=== PATIENT | female | born 2005 | race Hispanic/Latino ===

== ENCOUNTER 2024-06-20 20:10 | Emergency (ER) | payer BC ==
--- OUTSIDE RECORDS SUMMARY | 2024-06-20 20:17 | XMS REPORT | Continuity of Care Document ---
Author Name Unknown Address [address] [facility] [address] [place] [address] Organization [facility] [place] Address [address] [facility] [address] [place] [address] Care Team Providers Care Utility Inspector Name Role Phone SIENNA ROMERO Primary Care Physician Unavailab OCTAVIANO Carvalho Attending Clinician Unavailable OCTAVIANO VELASQUEZ Attending Clinician Unavailable Tal[facility] Attending Clinician Un available Unknown, Attending Attending Clinician Unavailab SUE Jaquez Attending Clinician Unavailable Doctor Unassigned, Inger Attending Clinician U Octaviano Ledbetter MD Attending Clinician [phone], [facility] Attending Clinician Unavailable DARA DE LOS SANTOS Attending Clinician Unavailable Dara De Los Santos PA-C Attending Clinician [phone] Dara De Los Santos PA-C Attending Clinician [phone] Unknown, Attending Attending Clinician Unavailab chelsea Mina MA, May Attending Clinician Unavailab LEONEL Nixon Attending Clinician Unavailable Leonel Dorado Attending Clinician [phone] Doctor Unassigned, Inger Attending Clinician U Talib Bhagat Attending Clinician Unavailable Sienna Boyce Attending Clinician [phone] SIENNA ROMERO Attending Clinician Unavailable Talib Padilla [facility] Fam Attending Clinician Unav ailable ASIYA HONG Attending Clinician Unavailable Asiya José Attending Clinician [phone], [facility] Attending Clinician Unavailable Elizabeth Hoffman MD Attending Clinician [phone] ELIZABETH HOFFMAN Attending Clinician Unavailable Provider, [facility] Attending Clinician Un available Bel SHEN, Buddy Mc Attending Clinician Lab, [facility] Pob I Attending Clinician Unavailab GINNY Evangelista Attending Clinician Unavaila ble Payers Payer Name Policy Type Policy Number Effective Date Expirati on Date Source [facility] [id number] 2015 00:00:00 Problems Condition Name Condition Details Condition Category Status Onset Date Resolution Date Last Treatment Date Treating Clinician Comments Source Obesity (BMI 30-39.9) Obesity (BMI 30-39.9) Disease Active 05-17 00:00: 00 [facility] Routine general medical examinatio n at a health care facility Routine general medical examinatio n at a health care facility Disease Active 10-30 00:00: 00 [facility] Cardiac murmur Cardiac murmur Disease Active 10-30 00:00: 00 [facility] Need for HPV vaccinatio n Need for HPV vaccinatio n Disease Resolve d 10-30 00:00: 00 2023-12-30 00:00:00 2023-12-30 15:12:06 [facility] Allergies, Adverse Reactions, Alerts Allergy Name Allergy Type Status Severity Reaction(s) Onset Date Inactive Date Treating Clinician Comments Source NO KNOWN ALLERGIE S Drug Class Active [facility] Social History Social Habit Start Date Stop Date Quantity Comments Source [facility] History of Social function 2024-04-22 00:00:00 2024-04-22 00:00:00 [facility] Alcoholic beverage intake 2024-04-22 00:00:00 2024-04-22 00:00:00 Current non-drinker of alcohol (finding) [facility] Exposure to SARS-CoV-2 (event) 2022-06-15 00:00:00 2022-06-25 12:08:00 Not sure [facility] Alcohol intake 2022-06-25 00:00:00 2022-06-25 00:00:00 Current non-drinker of alcohol (finding) [facility] Tobacco use and exposure 2021-11-27 00:00:00 2021-11-27 00:00:00 Smokeless tobacco non-user [facility] Sex assigned at 2005 00:00:00 2005 00:00:00 [facility] Smoking Status Start Date Stop Date Source Never smoked tobacco [facility] Medications Ordered Medication Name Filled Medication Name Start Date Stop Date Current Medication? Ordering Clinician Indication Dosage Frequency Signature (SIG) Comments Components Source norelgestro min-ethinyl estradiol 150-35 mcg/24 hr patch 2023-02 2-05 00:00: 00 Yes [id number] 1{patch } Apply 1 Patch to skin weekly. [facility] ondansetron 4 mg disintegrat ing tablet 2023-02 00:00: 00 12-29 00:00 :00 No [id number] 4mg Take 1 tablet by mouth every 8 (eight) hours as needed for Nausea and Vomiting (N/V). [facility] amoxicillin 500 mg capsule 6-04 00:00: 00 08-02 04:59 :00 No [id number] 500mg Take 1 capsule by mouth in the morning and 1 capsule in the evening. Do all this for 10 days. [facility] methylPREDN ISolone (MEDROL, ROSEANNE,) 4 mg tablets 5-08 00:00: 00 12-29 00:00 :00 No [id number] follow package directions [facility] norgestimat e-ethinyl estradioL 0.25-35 mg-mcg per tablet 3-30 00:00: 00 12-29 00:00 :00 No [id number] 1{tbl} Take 1 tablet by mouth in the morning. [facility] norgestimat e-ethinyl estradioL 0.25-35 mg-mcg per tablet -12 00:00: 00 05-17 00:00 :00 No [id number] 1{tbl} Take 1 tablet by mouth in the morning. [facility] azelastine 137 mcg (0.1 %) nasal spray 02-22 00:00: 00 12-29 00:00 :00 No [id number] 1{spray } Use 1 [place]mar in each nostril in the morning and 1 [place]mar in the evening. Use in each nostril as directed [facility] benzonatate (TESSALON PERLES) 100 mg capsule 02-22 00:00: 00 12-29 00:00 :00 No [id number] 100mg Take 1 capsule by mouth every 8 (eight) hours as needed for Cough. [facility] spinosad (NATROBA) 0.9 % suspension 2018-02 00:00: 00 02-22 00:00 :00 No [id number] Apply to dry hair/scalp , rinse with warm water after 10 minutes. May repeat in 7 days. [facility] Immunizations Ordered Immunization Name Filled Immunization Name Date Status Comments Source Meningococcal B, OMV 2022-06-12 00:00:00 Completed [facility] Meningococcal B, OMV 2022-06-12 00:00:00 Completed [facility] Meningococcal B, OMV 2022-06-12 00:00:00 Completed [facility] Meningococcal B, OMV 2022-06-12 00:00:00 Completed [facility] Meningococcal B, OMV 2022-06-12 00:00:00 Completed Meningococcal B, OMV 2022-06-12 00:00:00 Completed [facility] SARS-COV-2 COVID-19 MODERNA 12+ YRS VACCINE 2022-04-05 00:00:00 Completed [facility] SARS-COV-2 COVID-19 MODERNA 12+ YRS VACCINE 2022-04-05 00:00:00 Completed [facility] SARS-COV-2 COVID-19 MODERNA 12+ YRS VACCINE 2022-04-05 00:00:00 Completed [facility] SARS-COV-2 COVID-19 MODERNA 12+ YRS VACCINE 2022-04-05 00:00:00 Completed [facility] SARS-COV-2 COVID-19 MODERNA 12+ YRS VACCINE 2022-04-05 00:00:00 Completed [facility] SARS-COV-2 COVID-19 MODERNA 12+ YRS VACCINE 2022-04-05 00:00:00 Completed [facility] SARS-COV-2 COVID-19 MODERNA 12+ YRS VACCINE 2022-04-05 00:00:00 Completed [facility] SARS-COV-2 COVID-19 MODERNA 12+ YRS VACCINE 2022-04-05 00:00:00 Completed [facility] SARS-COV-2 COVID-19 MODERNA 12+ YRS VACCINE 2022-04-05 00:00:00 Completed [facility] SARS-COV-2 COVID-19 MODERNA 12+ YRS VACCINE 2022-04-05 00:00:00 Completed [facility] SARS-COV-2 COVID-19 MODERNA 12+ YRS VACCINE 2022-01-17 00:00:00 Completed [facility] SARS-COV-2 COVID-19 MODERNA 12+ YRS VACCINE 2022-01-17 00:00:00 Completed [facility] SARS-COV-2 COVID-19 MODERNA 12+ YRS VACCINE 2022-01-17 00:00:00 Completed [facility] SARS-COV-2 COVID-19 MODERNA 12+ YRS VACCINE 2022-01-17 00:00:00 Completed [facility] SARS-COV-2 COVID-19 MODERNA 12+ YRS VACCINE 2022-01-17 00:00:00 Completed [facility] SARS-COV-2 COVID-19 MODERNA 12+ YRS VACCINE 2022-01-17 00:00:00 Completed [facility] SARS-COV-2 COVID-19 MODERNA 12+ YRS VACCINE 2022-01-17 00:00:00 Completed [facility] SARS-COV-2 COVID-19 MODERNA 12+ YRS VACCINE 2022-01-17 00:00:00 Completed [facility] SARS-COV-2 COVID-19 MODERNA 12+ YRS VACCINE 2022-01-17 00:00:00 Completed [facility] SARS-COV-2 COVID-19 MODERNA 12+ YRS VACCINE 2022-01-17 00:00:00 Completed [facility] SARS-COV-2 COVID-19 MODERNA 12+ YRS VACCINE 2022-01-17 00:00:00 Completed [facility] SARS-COV-2 COVID-19 MODERNA 12+ YRS VACCINE 2022-01-17 00:00:00 Completed [facility] SARS-COV-2 COVID-19 MODERNA 12+ YRS VACCINE 2022-01-17 00:00:00 Completed [facility] SARS-COV-2 COVID-19 MODERNA 12+ YRS VACCINE 2022-01-17 00:00:00 Completed [facility] SARS-COV-2 COVID-19 MODERNA 12+ YRS VACCINE 2022-01-17 00:00:00 Completed [facility] SARS-COV-2 COVID-19 MODERNA 12+ YRS VACCINE 2022-01-17 00:00:00 Completed [facility] SARS-COV-2 COVID-19 MODERNA 12+ YRS VACCINE 2022-01-17 00:00:00 Completed [facility] SARS-COV-2 COVID-19 MODERNA 12+ YRS VACCINE 2022-01-17 00:00:00 Completed [facility] SARS-COV-2 COVID-19 MODERNA 12+ YRS VACCINE 2022-01-17 00:00:00 Completed [facility] PPD (TB) 2021-11-27 00:00:00 Completed [facility] PPD (TB) 2021-11-27 00:00:00 Completed [facility] PPD (TB) 2021-11-27 00:00:00 Completed [facility] PPD (TB) 2021-11-27 00:00:00 Completed [facility] PPD (TB) 2021-11-27 00:00:00 Completed [facility] PPD (TB) 2021-11-27 00:00:00 Completed [facility] PPD (TB) 2021-11-27 00:00:00 Completed [facility] PPD (TB) 2021-11-27 00:00:00 Completed [facility] PPD (TB) 2021-11-27 00:00:00 Completed [facility] PPD (TB) 2021-11-27 00:00:00 Completed [facility] PPD (TB) 2021-11-27 00:00:00 Completed [facility] PPD (TB) 2021-11-27 00:00:00 Completed [facility] PPD (TB) 2021-11-27 00:00:00 Completed [facility] PPD (TB) 2021-11-27 00:00:00 Completed [facility] PPD (TB) 2021-11-27 00:00:00 Completed [facility] PPD (TB) 2021-11-27 00:00:00 Completed [facility] PPD (TB) 2021-11-27 00:00:00 Completed [facility] PPD (TB) 2021-11-27 00:00:00 Completed [facility] PPD (TB) 2021-11-27 00:00:00 Completed [facility] PPD (TB) 2021-11-27 00:00:00 Completed [facility] PPD (TB) 2021-11-27 00:00:00 Completed [facility] PPD (TB) 2021-11-27 00:00:00 Completed [facility] PPD (TB) 2021-11-27 00:00:00 Completed [facility] Influenza Virus Vaccine Quad IM, Preserv and ABX Free 6 MO-64 YRS 2021-11-21 00:00:00 Completed [facility] Influenza Virus Vaccine Quad IM, Preserv and ABX Free 6 MO-64 YRS 2021-11-21 00:00:00 Completed [facility] Influenza Virus Vaccine Quad IM, Preserv and ABX Free 6 MO-64 YRS 2021-11-21 00:00:00 Completed [facility] Influenza Virus Vaccine Quad IM, Preserv and ABX Free 6 MO-64 YRS 2021-11-21 00:00:00 Completed [facility] Influenza Virus Vaccine Quad IM, Preserv and ABX Free 6 MO-64 YRS 2021-11-21 00:00:00 Completed [facility] Influenza Virus Vaccine Quad IM, Preserv and ABX Free 6 MO-64 YRS (FLUCELVAX) 2021-11-21 00:00:00 Completed [facility] Influenza Virus Vaccine Quad IM, Preserv and ABX Free 6 MO-64 YRS 2021-11-21 00:00:00 Completed [facility] Influenza Virus Vaccine Quad IM, Preserv and ABX Free 6 MO-64 YRS 2021-11-21 00:00:00 Completed [facility] Influenza Virus Vaccine Quad IM, Preserv and ABX Free 6 MO-64 YRS 2021-11-21 00:00:00 Completed [facility] Influenza Virus Vaccine Quad IM, Preserv and ABX Free 6 MO-64 YRS 2021-11-21 00:00:00 Completed [facility] Influenza Virus Vaccine Quad IM, Preserv and ABX Free 6 MO-64 YRS 2021-11-21 00:00:00 Completed [facility] Influenza Virus Vaccine Quad IM, Preserv and ABX Free 6 MO-64 YRS 2021-11-21 00:00:00 Completed [facility] Influenza Virus Vaccine Quad IM, Preserv and ABX Free 6 MO-64 YRS 2021-11-21 00:00:00 Completed [facility] Influenza Virus Vaccine Quad IM, Preserv and ABX Free 6 MO-64 YRS 2021-11-21 00:00:00 Completed [facility] Influenza Virus Vaccine Quad IM, Preserv and ABX Free 6 MO-64 YRS 2021-11-21 00:00:00 Completed [facility] Influenza Virus Vaccine Quad IM, Preserv and ABX Free 6 MO-64 YRS 2021-11-21 00:00:00 Completed [facility] Influenza Virus Vaccine Quad IM, Preserv and ABX Free 6 MO-64 YRS 2021-11-21 00:00:00 Completed [facility] Influenza Virus Vaccine Quad IM, Preserv and ABX Free 6 MO-64 YRS 2021-11-21 00:00:00 Completed [facility] Influenza Virus Vaccine Quad IM, Preserv and ABX Free 6 MO-64 YRS 2021-11-21 00:00:00 Completed [facility] Influenza Virus Vaccine Quad IM, Preserv and ABX Free 6 MO-64 YRS 2021-11-21 00:00:00 Completed [facility] Influenza Virus Vaccine Quad IM, Preserv and ABX Free 6 MO-64 YRS 2021-11-21 00:00:00 Completed [facility] Influenza Virus Vaccine Quad IM, Preserv and ABX Free 6 MO-64 YRS 2021-11-21 00:00:00 Completed [facility] Influenza Virus Vaccine Quad IM, Preserv and ABX Free 6 MO-64 YRS 2021-11-21 00:00:00 Completed [facility] Influenza Virus Vaccine Quad IM, Preserv and ABX Free 6 MO-64 YRS 2021-11-21 00:00:00 Completed [facility] Influenza Virus Vaccine Quad IM, Preserv and ABX Free 6 MO-64 YRS 2021-11-21 00:00:00 Completed [facility] Meningococcal Polysaccharide (groups A, C, Y and W-135) conjugate vaccine (MCV4P) 2016-08-14 00:00:00 Completed [facility] TDAP 2016-08-14 00:00:00 Completed [facility] Meningococcal Polysaccharide (groups A, C, Y and W-135) conjugate vaccine (MCV4P) 2016-08-14 00:00:00 Completed [facility] TDAP 2016-08-14 00:00:00 Completed [facility] Meningococcal Polysaccharide (groups A, C, Y and W-135) conjugate vaccine (MCV4P) 2016-08-14 00:00:00 Completed [facility] TDAP 2016-08-14 00:00:00 Completed [facility] Meningococcal Polysaccharide (groups A, C, Y and W-135) conjugate vaccine (MCV4P) 2016-08-14 00:00:00 Completed [facility] TDAP 2016-08-14 00:00:00 Completed [facility] Meningococcal Polysaccharide (groups A, C, Y and W-135) conjugate vaccine (MCV4P) 2016-08-14 00:00:00 Completed [facility] TDAP 2016-08-14 00:00:00 Completed [facility] Meningococcal Polysaccharide (groups A, C, Y and W-135) conjugate vaccine (MCV4P) 2016-08-14 00:00:00 Completed TDAP 2016-08-14 00:00:00 Completed Meningococcal Polysaccharide (groups A, C, Y and W-135) conjugate vaccine (MCV4P) 2016-08-14 00:00:00 Completed [facility] TDAP 2016-08-14 00:00:00 Completed [facility] Meningococcal Polysaccharide (groups A, C, Y and W-135) conjugate vaccine (MCV4P) 2016-08-14 00:00:00 Completed [facility] TDAP 2016-08-14 00:00:00 Completed [facility] Meningococcal Polysaccharide (groups A, C, Y and W-135) conjugate vaccine (MCV4P) 2016-08-14 00:00:00 Completed [facility] TDAP 2016-08-14 00:00:00 Completed [facility] Meningococcal Polysaccharide (groups A, C, Y and W-135) conjugate vaccine (MCV4P) 2016-08-14 00:00:00 Completed [facility] TDAP 2016-08-14 00:00:00 Completed [facility] Meningococcal Polysaccharide (groups A, C, Y and W-135) conjugate vaccine (MCV4P) 2016-08-14 00:00:00 Completed [facility] TDAP 2016-08-14 00:00:00 Completed [facility] Meningococcal Polysaccharide (groups A, C, Y and W-135) conjugate vaccine (MCV4P) 2016-08-14 00:00:00 Completed [facility] TDAP 2016-08-14 00:00:00 Completed [facility] Meningococcal Polysaccharide (groups A, C, Y and W-135) conjugate vaccine (MCV4P) 2016-08-14 00:00:00 Completed [facility] TDAP 2016-08-14 00:00:00 Completed [facility] Meningococcal Polysaccharide (groups A, C, Y and W-135) conjugate vaccine (MCV4P) 2016-08-14 00:00:00 Completed [facility] TDAP 2016-08-14 00:00:00 Completed [facility] Meningococcal Polysaccharide (groups A, C, Y and W-135) conjugate vaccine (MCV4P) 2016-08-14 00:00:00 Completed [facility] TDAP 2016-08-14 00:00:00 Completed [facility] Meningococcal Polysaccharide (groups A, C, Y and W-135) conjugate vaccine (MCV4P) 2016-08-14 00:00:00 Completed [facility] TDAP 2016-08-14 00:00:00 Completed [facility] Meningococcal Polysaccharide (groups A, C, Y and W-135) conjugate vaccine (MCV4P) 2016-08-14 00:00:00 Completed [facility] TDAP 2016-08-14 00:00:00 Completed [facility] Meningococcal Polysaccharide (groups A, C, Y and W-135) conjugate vaccine (MCV4P) 2016-08-14 00:00:00 Completed [facility] TDAP 2016-08-14 00:00:00 Completed [facility] Meningococcal Polysaccharide (groups A, C, Y and W-135) conjugate vaccine (MCV4P) 2016-08-14 00:00:00 Completed [facility] TDAP 2016-08-14 00:00:00 Completed [facility] Meningococcal Polysaccharide (groups A, C, Y and W-135) conjugate vaccine (MCV4P) 2016-08-14 00:00:00 Completed [facility] TDAP 2016-08-14 00:00:00 Completed [facility] Meningococcal Polysaccharide (groups A, C, Y and W-135) conjugate vaccine (MCV4P) 2016-08-14 00:00:00 Completed [facility] TDAP 2016-08-14 00:00:00 Completed [facility] Meningococcal Polysaccharide (groups A, C, Y and W-135) conjugate vaccine (MCV4P) 2016-08-14 00:00:00 Completed [facility] TDAP 2016-08-14 00:00:00 Completed [facility] Meningococcal Polysaccharide (groups A, C, Y and W-135) conjugate vaccine (MCV4P) 2016-08-14 00:00:00 Completed [facility] TDAP 2016-08-14 00:00:00 Completed [facility] Meningococcal Polysaccharide (groups A, C, Y and W-135) conjugate vaccine (MCV4P) 2016-08-14 00:00:00 Completed [facility] TDAP 2016-08-14 00:00:00 Completed [facility] Meningococcal Polysaccharide (groups A, C, Y and W-135) conjugate vaccine (MCV4P) 2016-08-14 00:00:00 Completed [facility] TDAP 2016-08-14 00:00:00 Completed [facility] Meningococcal Polysaccharide (groups A, C, Y and W-135) conjugate vaccine (MCV4P) 2016-08-14 00:00:00 Completed [facility] TDAP 2016-08-14 00:00:00 Completed [facility] HPV9 2016-04-30 00:00:00 Completed [facility] HPV9 2016-04-30 00:00:00 Completed [facility] HPV9 2016-04-30 00:00:00 Completed [facility] HPV9 2016-04-30 00:00:00 Completed [facility] HPV9 2016-04-30 00:00:00 Completed [facility] HPV9 2016-04-30 00:00:00 Completed HPV9 2016-04-30 00:00:00 Completed [facility] HPV9 2016-04-30 00:00:00 Completed [facility] HPV9 2016-04-30 00:00:00 Completed [facility] HPV9 2016-04-30 00:00:00 Completed [facility] HPV9 2016-04-30 00:00:00 Completed [facility] HPV9 2016-04-30 00:00:00 Completed [facility] HPV9 2016-04-30 00:00:00 Completed [facility] HPV9 2016-04-30 00:00:00 Completed [facility] HPV9 2016-04-30 00:00:00 Completed [facility] HPV9 2016-04-30 00:00:00 Completed [facility] HPV9 2016-04-30 00:00:00 Completed [facility] HPV9 2016-04-30 00:00:00 Completed [facility] HPV9 2016-04-30 00:00:00 Completed [facility] HPV9 2016-04-30 00:00:00 Completed [facility] HPV9 2016-04-30 00:00:00 Completed [facility] HPV9 2016-04-30 00:00:00 Completed [facility] HPV9 2016-04-30 00:00:00 Completed [facility] HPV9 2016-04-30 00:00:00 Completed [facility] HPV9 2016-04-30 00:00:00 Completed [facility] HPV9 2016-04-30 00:00:00 Completed [facility] HPV 2015-12-12 00:00:00 Completed [facility] HPV 2015-12-12 00:00:00 Completed [facility] HPV 2015-12-12 00:00:00 Completed [facility] HPV 2015-12-12 00:00:00 Completed [facility] HPV 2015-12-12 00:00:00 Completed [facility] HPV 2015-12-12 00:00:00 Completed HPV 2015-12-12 00:00:00 Completed [facility] HPV 2015-12-12 00:00:00 Completed [facility] HPV 2015-12-12 00:00:00 Completed [facility] HPV 2015-12-12 00:00:00 Completed [facility] HPV 2015-12-12 00:00:00 Completed [facility] HPV 2015-12-12 00:00:00 Completed [facility] HPV 2015-12-12 00:00:00 Completed [facility] HPV 2015-12-12 00:00:00 Completed [facility] HPV 2015-12-12 00:00:00 Completed [facility] HPV 2015-12-12 00:00:00 Completed [facility] HPV 2015-12-12 00:00:00 Completed [facility] HPV 2015-12-12 00:00:00 Completed [facility] HPV 2015-12-12 00:00:00 Completed [facility] HPV 2015-12-12 00:00:00 Completed [facility] HPV 2015-12-12 00:00:00 Completed [facility] HPV 2015-12-12 00:00:00 Completed [facility] HPV 2015-12-12 00:00:00 Completed [facility] HPV 2015-12-12 00:00:00 Completed [facility] HPV 2015-12-12 00:00:00 Completed [facility] HPV 2015-12-12 00:00:00 Completed [facility] HPV 2015-10-31 00:00:00 Completed [facility] HPV 2015-10-31 00:00:00 Completed [facility] HPV 2015-10-31 00:00:00 Completed [facility] HPV 2015-10-31 00:00:00 Completed [facility] HPV 2015-10-31 00:00:00 Completed [facility] HPV 2015-10-31 00:00:00 Completed [facility] HPV 2015-10-31 00:00:00 Completed [facility] HPV 2015-10-31 00:00:00 Completed [facility] HPV 2015-10-31 00:00:00 Completed [facility] HPV 2015-10-31 00:00:00 Completed [facility] HPV 2015-10-31 00:00:00 Completed [facility] HPV 2015-10-31 00:00:00 Completed [facility] HPV 2015-10-31 00:00:00 Completed [facility] HPV 2015-10-31 00:00:00 Completed [facility] HPV 2015-10-31 00:00:00 Completed [facility] HPV 2015-10-31 00:00:00 Completed [facility] HPV 2015-10-31 00:00:00 Completed [facility] HPV 2015-10-31 00:00:00 Completed [facility] HPV 2015-10-31 00:00:00 Completed [facility] HPV 2015-10-31 00:00:00 Completed [facility] HPV 2015-10-31 00:00:00 Completed [facility] HPV 2015-10-31 00:00:00 Completed [facility] HPV 2015-10-31 00:00:00 Completed [facility] HPV 2015-10-31 00:00:00 Completed [facility] HPV 2015-10-31 00:00:00 Completed [facility] HPV 2015-10-31 00:00:00 Completed [facility] Influenza Virus Vaccine Nasal 2011-01-22 00:00:00 Completed [facility] Influenza Virus Vaccine Nasal 2011-01-22 00:00:00 Completed [facility] Influenza Virus Vaccine Nasal 2011-01-22 00:00:00 Completed [facility] Influenza Virus Vaccine Nasal 2011-01-22 00:00:00 Completed [facility] Influenza Virus Vaccine Nasal 2011-01-22 00:00:00 Completed [facility] Influenza, Live, Trivalent, Intranasal (FLUMIST) 2011-01-22 00:00:00 Completed Influenza Virus Vaccine Nasal 2011-01-22 00:00:00 Completed [facility] Influenza Virus Vaccine Nasal 2011-01-22 00:00:00 Completed [facility] Influenza Virus Vaccine Nasal 2011-01-22 00:00:00 Completed [facility] Influenza Virus Vaccine Nasal 2011-01-22 00:00:00 Completed [facility] Influenza Virus Vaccine Nasal 2011-01-22 00:00:00 Completed [facility] Influenza Virus Vaccine Nasal 2011-01-22 00:00:00 Completed [facility] Influenza Virus Vaccine Nasal 2011-01-22 00:00:00 Completed [facility] Influenza Virus Vaccine Nasal 2011-01-22 00:00:00 Completed [facility] Influenza Virus Vaccine Nasal 2011-01-22 00:00:00 Completed [facility] Influenza Virus Vaccine Nasal 2011-01-22 00:00:00 Completed [facility] Influenza Virus Vaccine Nasal 2011-01-22 00:00:00 Completed [facility] Dtap/ipv 2008-03-23 00:00:00 Completed [facility] MMR 2008-03-23 00:00:00 Completed [facility] Varicella (varivax)(chicken pox) 2008-03-23 00:00:00 Completed [facility] Dtap/ipv 2008-03-23 00:00:00 Completed [facility] MMR 2008-03-23 00:00:00 Completed [facility] Varicella (varivax)(chicken pox) 2008-03-23 00:00:00 Completed [facility] Dtap/ipv 2008-03-23 00:00:00 Completed [facility] MMR 2008-03-23 00:00:00 Completed [facility] Varicella (varivax)(chicken pox) 2008-03-23 00:00:00 Completed [facility] Dtap/ipv 2008-03-23 00:00:00 Completed [facility] MMR 2008-03-23 00:00:00 Completed [facility] Varicella (varivax)(chicken pox) 2008-03-23 00:00:00 Completed [facility] Dtap/ipv 2008-03-23 00:00:00 Completed [facility] MMR 2008-03-23 00:00:00 Completed [facility] Varicella (varivax)(chicken pox) 2008-03-23 00:00:00 Completed [facility] Dtap/ipv 2008-03-23 00:00:00 Completed MMR 2008-03-23 00:00:00 Completed Varicella (varivax)(chicken pox) 2008-03-23 00:00:00 Completed Dtap/ipv 2008-03-23 00:00:00 Completed [facility] MMR 2008-03-23 00:00:00 Completed [facility] Varicella (varivax)(chicken pox) 2008-03-23 00:00:00 Completed [facility] Dtap/ipv 2008-03-23 00:00:00 Completed [facility] MMR 2008-03-23 00:00:00 Completed [facility] Varicella (varivax)(chicken pox) 2008-03-23 00:00:00 Completed [facility] Dtap/ipv 2008-03-23 00:00:00 Completed [facility] MMR 2008-03-23 00:00:00 Completed [facility] Varicella (varivax)(chicken pox) 2008-03-23 00:00:00 Completed [facility] Dtap/ipv 2008-03-23 00:00:00 Completed [facility] MMR 2008-03-23 00:00:00 Completed [facility] Varicella (varivax)(chicken pox) 2008-03-23 00:00:00 Completed [facility] Dtap/ipv 2008-03-23 00:00:00 Completed [facility] MMR 2008-03-23 00:00:00 Completed [facility] Varicella (varivax)(chicken pox) 2008-03-23 00:00:00 Completed [facility] Dtap/ipv 2008-03-23 00:00:00 Completed [facility] MMR 2008-03-23 00:00:00 Completed [facility] Varicella (varivax)(chicken pox) 2008-03-23 00:00:00 Completed [facility] Dtap/ipv 2008-03-23 00:00:00 Completed [facility] MMR 2008-03-23 00:00:00 Completed [facility] Varicella (varivax)(chicken pox) 2008-03-23 00:00:00 Completed [facility] Dtap/ipv 2008-03-23 00:00:00 Completed [facility] MMR 2008-03-23 00:00:00 Completed [facility] Varicella (varivax)(chicken pox) 2008-03-23 00:00:00 Completed [facility] Dtap/ipv 2008-03-23 00:00:00 Completed [facility] MMR 2008-03-23 00:00:00 Completed [facility] Varicella (varivax)(chicken pox) 2008-03-23 00:00:00 Completed [facility] Dtap/ipv 2008-03-23 00:00:00 Completed [facility] MMR 2008-03-23 00:00:00 Completed [facility] Varicella (varivax)(chicken pox) 2008-03-23 00:00:00 Completed [facility] Dtap/ipv 2008-03-23 00:00:00 Completed [facility] MMR 2008-03-23 00:00:00 Completed [facility] Varicella (varivax)(chicken pox) 2008-03-23 00:00:00 Completed [facility] HEPA-PEDS 2006-04-22 00:00:00 Completed [facility] HEPA-PEDS 2006-04-22 00:00:00 Completed [facility] HEPA-PEDS 2006-04-22 00:00:00 Completed [facility] HEPA-PEDS 2006-04-22 00:00:00 Completed [facility] HEPA-PEDS 2006-04-22 00:00:00 Completed [facility] HEPA-PEDS 2006-04-22 00:00:00 Completed HEPA-PEDS 2006-04-22 00:00:00 Completed [facility] HEPA-PEDS 2006-04-22 00:00:00 Completed [facility] HEPA-PEDS 2006-04-22 00:00:00 Completed [facility] HEPA-PEDS 2006-04-22 00:00:00 Completed [facility] HEPA-PEDS 2006-04-22 00:00:00 Completed [facility] HEPA-PEDS 2006-04-22 00:00:00 Completed [facility] HEPA-PEDS 2006-04-22 00:00:00 Completed [facility] HEPA-PEDS 2006-04-22 00:00:00 Completed [facility] HEPA-PEDS 2006-04-22 00:00:00 Completed [facility] HEPA-PEDS 2006-04-22 00:00:00 Completed [facility] HEPA-PEDS 2006-04-22 00:00:00 Completed [facility] DTaP, Unspecified Formulation 2005-10-16 00:00:00 Completed [facility] HEPATITIS A 2005-10-16 00:00:00 Completed [facility] HIB 4 Dose Schedule 2005-10-16 00:00:00 Completed [facility] Pneumococcal 7 Conjugate, PCV7 (Prevnar7) 2005-10-16 00:00:00 Completed [facility] DTaP, Unspecified Formulation 2005-10-16 00:00:00 Completed [facility] HEPATITIS A 2005-10-16 00:00:00 Completed [facility] HIB 4 Dose Schedule 2005-10-16 00:00:00 Completed [facility] Pneumococcal 7 Conjugate, PCV7 (Prevnar7) 2005-10-16 00:00:00 Completed [facility] DTaP, Unspecified Formulation 2005-10-16 00:00:00 Completed [facility] HEPATITIS A 2005-10-16 00:00:00 Completed [facility] HIB 4 Dose Schedule 2005-10-16 00:00:00 Completed [facility] Pneumococcal 7 Conjugate, PCV7 (Prevnar7) 2005-10-16 00:00:00 Completed [facility] DTaP, Unspecified Formulation 2005-10-16 00:00:00 Completed [facility] HEPATITIS A 2005-10-16 00:00:00 Completed [facility] HIB 4 Dose Schedule 2005-10-16 00:00:00 Completed [facility] Pneumococcal 7 Conjugate, PCV7 (Prevnar7) 2005-10-16 00:00:00 Completed [facility] DTaP, Unspecified Formulation 2005-10-16 00:00:00 Completed [facility] HEPATITIS A 2005-10-16 00:00:00 Completed [facility] HIB 4 Dose Schedule 2005-10-16 00:00:00 Completed [facility] Pneumococcal 7 Conjugate, PCV7 (Prevnar7) 2005-10-16 00:00:00 Completed [facility] DTaP, Unspecified Formulation 2005-10-16 00:00:00 Completed HEPATITIS A 2005-10-16 00:00:00 Completed HIB 4 Dose Schedule 2005-10-16 00:00:00 Completed Pneumococcal 7 Conjugate, PCV7 (Prevnar7) 2005-10-16 00:00:00 Completed DTaP, Unspecified Formulation 2005-10-16 00:00:00 Completed [facility] HEPATITIS A 2005-10-16 00:00:00 Completed [facility] HIB 4 Dose Schedule 2005-10-16 00:00:00 Completed [facility] Pneumococcal 7 Conjugate, PCV7 (Prevnar7) 2005-10-16 00:00:00 Completed [facility] DTaP, Unspecified Formulation 2005-10-16 00:00:00 Completed [facility] HEPATITIS A 2005-10-16 00:00:00 Completed [facility] HIB 4 Dose Schedule 2005-10-16 00:00:00 Completed [facility] Pneumococcal 7 Conjugate, PCV7 (Prevnar7) 2005-10-16 00:00:00 Completed [facility] DTaP, Unspecified Formulation 2005-10-16 00:00:00 Completed [facility] HEPATITIS A 2005-10-16 00:00:00 Completed [facility] HIB 4 Dose Schedule 2005-10-16 00:00:00 Completed [facility] Pneumococcal 7 Conjugate, PCV7 (Prevnar7) 2005-10-16 00:00:00 Completed [facility] DTaP, Unspecified Formulation 2005-10-16 00:00:00 Completed [facility] HEPATITIS A 2005-10-16 00:00:00 Completed [facility] HIB 4 Dose Schedule 2005-10-16 00:00:00 Completed [facility] Pneumococcal 7 Conjugate, PCV7 (Prevnar7) 2005-10-16 00:00:00 Completed [facility] DTaP, Unspecified Formulation 2005-10-16 00:00:00 Completed [facility] HEPATITIS A 2005-10-16 00:00:00 Completed [facility] HIB 4 Dose Schedule 2005-10-16 00:00:00 Completed [facility] Pneumococcal 7 Conjugate, PCV7 (Prevnar7) 2005-10-16 00:00:00 Completed [facility] DTaP, Unspecified Formulation 2005-10-16 00:00:00 Completed [facility] HEPATITIS A 2005-10-16 00:00:00 Completed [facility] HIB 4 Dose Schedule 2005-10-16 00:00:00 Completed [facility] Pneumococcal 7 Conjugate, PCV7 (Prevnar7) 2005-10-16 00:00:00 Completed [facility] DTaP, Unspecified Formulation 2005-10-16 00:00:00 Completed [facility] HEPATITIS A 2005-10-16 00:00:00 Completed [facility] HIB 4 Dose Schedule 2005-10-16 00:00:00 Completed [facility] Pneumococcal 7 Conjugate, PCV7 (Prevnar7) 2005-10-16 00:00:00 Completed [facility] DTaP, Unspecified Formulation 2005-10-16 00:00:00 Completed [facility] HEPATITIS A 2005-10-16 00:00:00 Completed [facility] HIB 4 Dose Schedule 2005-10-16 00:00:00 Completed [facility] Pneumococcal 7 Conjugate, PCV7 (Prevnar7) 2005-10-16 00:00:00 Completed [facility] DTaP, Unspecified Formulation 2005-10-16 00:00:00 Completed [facility] HEPATITIS A 2005-10-16 00:00:00 Completed [facility] HIB 4 Dose Schedule 2005-10-16 00:00:00 Completed [facility] Pneumococcal 7 Conjugate, PCV7 (Prevnar7) 2005-10-16 00:00:00 Completed [facility] DTaP, Unspecified Formulation 2005-10-16 00:00:00 Completed [facility] HEPATITIS A 2005-10-16 00:00:00 Completed [facility] HIB 4 Dose Schedule 2005-10-16 00:00:00 Completed [facility] Pneumococcal 7 Conjugate, PCV7 (Prevnar7) 2005-10-16 00:00:00 Completed [facility] DTaP, Unspecified Formulation 2005-10-16 00:00:00 Completed [facility] HEPATITIS A 2005-10-16 00:00:00 Completed [facility] HIB 4 Dose Schedule 2005-10-16 00:00:00 Completed [facility] Pneumococcal 7 Conjugate, PCV7 (Prevnar7) 2005-10-16 00:00:00 Completed [facility] MMR 2005-02-16 00:00:00 Completed [facility] Varicella (varivax)(chicken pox) 2005-02-16 00:00:00 Completed [facility] MMR 2005-02-16 00:00:00 Completed [facility] Varicella (varivax)(chicken pox) 2005-02-16 00:00:00 Completed [facility] MMR 2005-02-16 00:00:00 Completed [facility] Varicella (varivax)(chicken pox) 2005-02-16 00:00:00 Completed [facility] MMR 2005-02-16 00:00:00 Completed [facility] Varicella (varivax)(chicken pox) 2005-02-16 00:00:00 Completed [facility] MMR 2005-02-16 00:00:00 Completed [facility] Varicella (varivax)(chicken pox) 2005-02-16 00:00:00 Completed [facility] MMR 2005-02-16 00:00:00 Completed Varicella (varivax)(chicken pox) 2005-02-16 00:00:00 Completed MMR 2005-02-16 00:00:00 Completed [facility] Varicella (varivax)(chicken pox) 2005-02-16 00:00:00 Completed [facility] MMR 2005-02-16 00:00:00 Completed [facility] Varicella (varivax)(chicken pox) 2005-02-16 00:00:00 Completed [facility] MMR 2005-02-16 00:00:00 Completed [facility] Varicella (varivax)(chicken pox) 2005-02-16 00:00:00 Completed [facility] MMR 2005-02-16 00:00:00 Completed [facility] Varicella (varivax)(chicken pox) 2005-02-16 00:00:00 Completed [facility] MMR 2005-02-16 00:00:00 Completed [facility] Varicella (varivax)(chicken pox) 2005-02-16 00:00:00 Completed [facility] MMR 2005-02-16 00:00:00 Completed [facility] Varicella (varivax)(chicken pox) 2005-02-16 00:00:00 Completed [facility] MMR 2005-02-16 00:00:00 Completed [facility] Varicella (varivax)(chicken pox) 2005-02-16 00:00:00 Completed [facility] 2005-02-16 00:00:00 Completed [facility] Varicella (varivax)(chicken pox) 2005-02-16 00:00:00 Completed [facility] 2005-02-16 00:00:00 Completed [facility] Varicella (varivax)(chicken pox) 2005-02-16 00:00:00 Completed [facility] 2005-02-16 00:00:00 Completed [facility] Varicella (varivax)(chicken pox) 2005-02-16 00:00:00 Completed [facility] 2005-02-16 00:00:00 Completed [facility] Varicella (varivax)(chicken pox) 2005-02-16 00:00:00 Completed [facility] Pediarix (dtap/hep B/ipv) 2004 00:00:00 Completed [facility] HIB 4 Dose Schedule 2004 00:00:00 Completed [facility] Pneumococcal 7 Conjugate, PCV7 (Prevnar7) 2004 00:00:00 Completed [facility] Pediarix (dtap/hep B/ipv) 2004 00:00:00 Completed [facility] HIB 4 Dose Schedule 2004 00:00:00 Completed [facility] Pneumococcal 7 Conjugate, PCV7 (Prevnar7) 2004 00:00:00 Completed [facility] Pediarix (dtap/hep B/ipv) 2004 00:00:00 Completed [facility] HIB 4 Dose Schedule 2004 00:00:00 Completed [facility] Pneumococcal 7 Conjugate, PCV7 (Prevnar7) 2004 00:00:00 Completed [facility] Pediarix (dtap/hep B/ipv) 2004 00:00:00 Completed [facility] HIB 4 Dose Schedule 2004 00:00:00 Completed [facility] Pneumococcal 7 Conjugate, PCV7 (Prevnar7) 2004 00:00:00 Completed [facility] Pediarix (dtap/hep B/ipv) 2004 00:00:00 Completed [facility] HIB 4 Dose Schedule 2004 00:00:00 Completed [facility] Pneumococcal 7 Conjugate, PCV7 (Prevnar7) 2004 00:00:00 Completed [facility] Pediarix (dtap/hep B/ipv) 2004 00:00:00 Completed HIB 4 Dose Schedule 2004 00:00:00 Completed Pneumococcal 7 Conjugate, PCV7 (Prevnar7) 2004 00:00:00 Completed Pediarix (dtap/hep B/ipv) 2004 00:00:00 Completed [facility] HIB 4 Dose Schedule 2004 00:00:00 Completed [facility] Pneumococcal 7 Conjugate, PCV7 (Prevnar7) 2004 00:00:00 Completed [facility] Pediarix (dtap/hep B/ipv) 2004 00:00:00 Completed [facility] HIB 4 Dose Schedule 2004 00:00:00 Completed [facility] Pneumococcal 7 Conjugate, PCV7 (Prevnar7) 2004 00:00:00 Completed [facility] Pediarix (dtap/hep B/ipv) 2004 00:00:00 Completed [facility] HIB 4 Dose Schedule 2004 00:00:00 Completed [facility] Pneumococcal 7 Conjugate, PCV7 (Prevnar7) 2004 00:00:00 Completed [facility] Pediarix (dtap/hep B/ipv) 2004 00:00:00 Completed [facility] HIB 4 Dose Schedule 2004 00:00:00 Completed [facility] Pneumococcal 7 Conjugate, PCV7 (Prevnar7) 2004 00:00:00 Completed [facility] Pediarix (dtap/hep B/ipv) 2004 00:00:00 Completed [facility] HIB 4 Dose Schedule 2004 00:00:00 Completed [facility] Pneumococcal 7 Conjugate, PCV7 (Prevnar7) 2004 00:00:00 Completed [facility] Pediarix (dtap/hep B/ipv) 2004 00:00:00 Completed [facility] HIB 4 Dose Schedule 2004 00:00:00 Completed [facility] Pneumococcal 7 Conjugate, PCV7 (Prevnar7) 2004 00:00:00 Completed [facility] Pediarix (dtap/hep B/ipv) 2004 00:00:00 Completed [facility] HIB 4 Dose Schedule 2004 00:00:00 Completed [facility] Pneumococcal 7 Conjugate, PCV7 (Prevnar7) 2004 00:00:00 Completed [facility] Pediarix (dtap/hep B/ipv) 2004 00:00:00 Completed [facility] HIB 4 Dose Schedule 2004 00:00:00 Completed [facility] Pneumococcal 7 Conjugate, PCV7 (Prevnar7) 2004 00:00:00 Completed [facility] Pediarix (dtap/hep B/ipv) 2004 00:00:00 Completed [facility] HIB 4 Dose Schedule 2004 00:00:00 Completed [facility] Pneumococcal 7 Conjugate, PCV7 (Prevnar7) 2004 00:00:00 Completed [facility] Pediarix (dtap/hep B/ipv) 2004 00:00:00 Completed [facility] HIB 4 Dose Schedule 2004 00:00:00 Completed [facility] Pneumococcal 7 Conjugate, PCV7 (Prevnar7) 2004 00:00:00 Completed [facility] Pediarix (dtap/hep B/ipv) 2004 00:00:00 Completed [facility] HIB 4 Dose Schedule 2004 00:00:00 Completed [facility] Pneumococcal 7 Conjugate, PCV7 (Prevnar7) 2004 00:00:00 Completed [facility] DTaP, Unspecified Formulation 2004 00:00:00 Completed [facility] Hep B, Adol or Pedi Dosage 2004 00:00:00 Completed [facility] HIB 4 Dose Schedule 2004 00:00:00 Completed [facility] Pneumococcal 7 Conjugate, PCV7 (Prevnar7) 2004 00:00:00 Completed [facility] IPV 2004 00:00:00 Completed [facility] DTaP, Unspecified Formulation 2004 00:00:00 Completed [facility] Hep B, Adol or Pedi Dosage 2004 00:00:00 Completed [facility] HIB 4 Dose Schedule 2004 00:00:00 Completed [facility] Pneumococcal 7 Conjugate, PCV7 (Prevnar7) 2004 00:00:00 Completed [facility] IPV 2004 00:00:00 Completed [facility] DTaP, Unspecified Formulation 2004 00:00:00 Completed [facility] Hep B, Adol or Pedi Dosage 2004 00:00:00 Completed [facility] HIB 4 Dose Schedule 2004 00:00:00 Completed [facility] Pneumococcal 7 Conjugate, PCV7 (Prevnar7) 2004 00:00:00 Completed [facility] IPV 2004 00:00:00 Completed [facility] DTaP, Unspecified Formulation 2004 00:00:00 Completed [facility] Hep B, Adol or Pedi Dosage 2004 00:00:00 Completed [facility] HIB 4 Dose Schedule 2004 00:00:00 Completed [facility] Pneumococcal 7 Conjugate, PCV7 (Prevnar7) 2004 00:00:00 Completed [facility] IPV 2004 00:00:00 Completed [facility] DTaP, Unspecified Formulation 2004 00:00:00 Completed [facility] Hep B, Adol or Pedi Dosage 2004 00:00:00 Completed [facility] HIB 4 Dose Schedule 2004 00:00:00 Completed [facility] Pneumococcal 7 Conjugate, PCV7 (Prevnar7) 2004 00:00:00 Completed [facility] IPV 2004 00:00:00 Completed [facility] DTaP, Unspecified Formulation 2004 00:00:00 Completed Hep B, Adol or Pedi Dosage 2004 00:00:00 Completed HIB 4 Dose Schedule 2004 00:00:00 Completed Pneumococcal 7 Conjugate, PCV7 (Prevnar7) 2004 00:00:00 Completed IPV 2004 00:00:00 Completed DTaP, Unspecified Formulation 2004 00:00:00 Completed [facility] Hep B, Adol or Pedi Dosage 2004 00:00:00 Completed [facility] HIB 4 Dose Schedule 2004 00:00:00 Completed [facility] Pneumococcal 7 Conjugate, PCV7 (Prevnar7) 2004 00:00:00 Completed [facility] IPV 2004 00:00:00 Completed [facility] DTaP, Unspecified Formulation 2004 00:00:00 Completed [facility] Hep B, Adol or Pedi Dosage 2004 00:00:00 Completed [facility] HIB 4 Dose Schedule 2004 00:00:00 Completed [facility] Pneumococcal 7 Conjugate, PCV7 (Prevnar7) 2004 00:00:00 Completed [facility] IPV 2004 00:00:00 Completed [facility] DTaP, Unspecified Formulation 2004 00:00:00 Completed [facility] Hep B, Adol or Pedi Dosage 2004 00:00:00 Completed [facility] HIB 4 Dose Schedule 2004 00:00:00 Completed [facility] Pneumococcal 7 Conjugate, PCV7 (Prevnar7) 2004 00:00:00 Completed [facility] IPV 2004 00:00:00 Completed [facility] DTaP, Unspecified Formulation 2004 00:00:00 Completed [facility] Hep B, Adol or Pedi Dosage 2004 00:00:00 Completed [facility] HIB 4 Dose Schedule 2004 00:00:00 Completed [facility] Pneumococcal 7 Conjugate, PCV7 (Prevnar7) 2004 00:00:00 Completed [facility] IPV 2004 00:00:00 Completed [facility] DTaP, Unspecified Formulation 2004 00:00:00 Completed [facility] Hep B, Adol or Pedi Dosage 2004 00:00:00 Completed [facility] HIB 4 Dose Schedule 2004 00:00:00 Completed [facility] Pneumococcal 7 Conjugate, PCV7 (Prevnar7) 2004 00:00:00 Completed [facility] IPV 2004 00:00:00 Completed [facility] DTaP, Unspecified Formulation 2004 00:00:00 Completed [facility] Hep B, Adol or Pedi Dosage 2004 00:00:00 Completed [facility] HIB 4 Dose Schedule 2004 00:00:00 Completed [facility] Pneumococcal 7 Conjugate, PCV7 (Prevnar7) 2004 00:00:00 Completed [facility] IPV 2004 00:00:00 Completed [facility] DTaP, Unspecified Formulation 2004 00:00:00 Completed [facility] Hep B, Adol or Pedi Dosage 2004 00:00:00 Completed [facility] HIB 4 Dose Schedule 2004 00:00:00 Completed [facility] Pneumococcal 7 Conjugate, PCV7 (Prevnar7) 2004 00:00:00 Completed [facility] IPV 2004 00:00:00 Completed [facility] DTaP, Unspecified Formulation 2004 00:00:00 Completed [facility] Hep B, Adol or Pedi Dosage 2004 00:00:00 Completed [facility] HIB 4 Dose Schedule 2004 00:00:00 Completed [facility] Pneumococcal 7 Conjugate, PCV7 (Prevnar7) 2004 00:00:00 Completed [facility] IPV 2004 00:00:00 Completed [facility] DTaP, Unspecified Formulation 2004 00:00:00 Completed [facility] Hep B, Adol or Pedi Dosage 2004 00:00:00 Completed [facility] HIB 4 Dose Schedule 2004 00:00:00 Completed [facility] Pneumococcal 7 Conjugate, PCV7 (Prevnar7) 2004 00:00:00 Completed [facility] IPV 2004 00:00:00 Completed [facility] DTaP, Unspecified Formulation 2004 00:00:00 Completed [facility] Hep B, Adol or Pedi Dosage 2004 00:00:00 Completed [facility] HIB 4 Dose Schedule 2004 00:00:00 Completed [facility] Pneumococcal 7 Conjugate, PCV7 (Prevnar7) 2004 00:00:00 Completed [facility] IPV 2004 00:00:00 Completed [facility] DTaP, Unspecified Formulation 2004 00:00:00 Completed [facility] Hep B, Adol or Pedi Dosage 2004 00:00:00 Completed [facility] HIB 4 Dose Schedule 2004 00:00:00 Completed [facility] Pneumococcal 7 Conjugate, PCV7 (Prevnar7) 2004 00:00:00 Completed [facility] IPV 2004 00:00:00 Completed [facility] DTaP, Unspecified Formulation 2004 00:00:00 Completed [facility] Hep B, Adol or Pedi Dosage 2004 00:00:00 Completed [facility] HIB 4 Dose Schedule 2004 00:00:00 Completed [facility] Pneumococcal 7 Conjugate, PCV7 (Prevnar7) 2004 00:00:00 Completed [facility] IPV 2004 00:00:00 Completed [facility] DTaP, Unspecified Formulation 2004 00:00:00 Completed [facility] Hep B, Adol or Pedi Dosage 2004 00:00:00 Completed [facility] HIB 4 Dose Schedule 2004 00:00:00 Completed [facility] Pneumococcal 7 Conjugate, PCV7 (Prevnar7) 2004 00:00:00 Completed [facility] IPV 2004 00:00:00 Completed [facility] DTaP, Unspecified Formulation 2004 00:00:00 Completed [facility] Hep B, Adol or Pedi Dosage 2004 00:00:00 Completed [facility] HIB 4 Dose Schedule 2004 00:00:00 Completed [facility] Pneumococcal 7 Conjugate, PCV7 (Prevnar7) 2004 00:00:00 Completed [facility] IPV 2004 00:00:00 Completed [facility] DTaP, Unspecified Formulation 2004 00:00:00 Completed [facility] Hep B, Adol or Pedi Dosage 2004 00:00:00 Completed [facility] HIB 4 Dose Schedule 2004 00:00:00 Completed [facility] Pneumococcal 7 Conjugate, PCV7 (Prevnar7) 2004 00:00:00 Completed [facility] IPV 2004 00:00:00 Completed [facility] DTaP, Unspecified Formulation 2004 00:00:00 Completed [facility] Hep B, Adol or Pedi Dosage 2004 00:00:00 Completed [facility] HIB 4 Dose Schedule 2004 00:00:00 Completed [facility] Pneumococcal 7 Conjugate, PCV7 (Prevnar7) 2004 00:00:00 Completed [facility] IPV 2004 00:00:00 Completed [facility] DTaP, Unspecified Formulation 2004 00:00:00 Completed [facility] Hep B, Adol or Pedi Dosage 2004 00:00:00 Completed [facility] HIB 4 Dose Schedule 2004 00:00:00 Completed [facility] Pneumococcal 7 Conjugate, PCV7 (Prevnar7) 2004 00:00:00 Completed [facility] IPV 2004 00:00:00 Completed [facility] DTaP, Unspecified Formulation 2004 00:00:00 Completed [facility] Hep B, Adol or Pedi Dosage 2004 00:00:00 Completed [facility] HIB 4 Dose Schedule 2004 00:00:00 Completed [facility] Pneumococcal 7 Conjugate, PCV7 (Prevnar7) 2004 00:00:00 Completed [facility] IPV 2004 00:00:00 Completed [facility] DTaP, Unspecified Formulation 2004 00:00:00 Completed [facility] Hep B, Adol or Pedi Dosage 2004 00:00:00 Completed [facility] HIB 4 Dose Schedule 2004 00:00:00 Completed [facility] Pneumococcal 7 Conjugate, PCV7 (Prevnar7) 2004 00:00:00 Completed [facility] IPV 2004 00:00:00 Completed [facility] DTaP, Unspecified Formulation 2004 00:00:00 Completed [facility] Hep B, Adol or Pedi Dosage 2004 00:00:00 Completed [facility] HIB 4 Dose Schedule 2004 00:00:00 Completed [facility] Pneumococcal 7 Conjugate, PCV7 (Prevnar7) 2004 00:00:00 Completed [facility] IPV 2004 00:00:00 Completed [facility] DTaP, Unspecified Formulation 2004 00:00:00 Completed [facility] Hep B, Adol or Pedi Dosage 2004 00:00:00 Completed [facility] HIB 4 Dose Schedule 2004 00:00:00 Completed [facility] Pneumococcal 7 Conjugate, PCV7 (Prevnar7) 2004 00:00:00 Completed [facility] IPV 2004 00:00:00 Completed [facility] DTaP, Unspecified Formulation 2004 00:00:00 Completed [facility] Hep B, Adol or Pedi Dosage 2004 00:00:00 Completed [facility] HIB 4 Dose Schedule 2004 00:00:00 Completed [facility] Pneumococcal 7 Conjugate, PCV7 (Prevnar7) 2004 00:00:00 Completed [facility] IPV 2004 00:00:00 Completed [facility] DTaP, Unspecified Formulation 2004 00:00:00 Completed [facility] Hep B, Adol or Pedi Dosage 2004 00:00:00 Completed HIB 4 Dose Schedule 2004 00:00:00 Completed Pneumococcal 7 Conjugate, PCV7 (Prevnar7) 2004 00:00:00 Completed IPV 2004 00:00:00 Completed DTaP, Unspecified Formulation 2004 00:00:00 Completed [facility] Hep B, Adol or Pedi Dosage 2004 00:00:00 Completed [facility] HIB 4 Dose Schedule 2004 00:00:00 Completed [facility] Pneumococcal 7 Conjugate, PCV7 (Prevnar7) 2004 00:00:00 Completed [facility] IPV 2004 00:00:00 Completed [facility] DTaP, Unspecified Formulation 2004 00:00:00 Completed [facility] Hep B, Adol or Pedi Dosage 2004 00:00:00 Completed [facility] HIB 4 Dose Schedule 2004 00:00:00 Completed [facility] Pneumococcal 7 Conjugate, PCV7 (Prevnar7) 2004 00:00:00 Completed [facility] IPV 2004 00:00:00 Completed [facility] DTaP, Unspecified Formulation 2004 00:00:00 Completed [facility] Hep B, Adol or Pedi Dosage 2004 00:00:00 Completed [facility] HIB 4 Dose Schedule 2004 00:00:00 Completed [facility] Pneumococcal 7 Conjugate, PCV7 (Prevnar7) 2004 00:00:00 Completed [facility] IPV 2004 00:00:00 Completed [facility] DTaP, Unspecified Formulation 2004 00:00:00 Completed [facility] Hep B, Adol or Pedi Dosage 2004 00:00:00 Completed [facility] HIB 4 Dose Schedule 2004 00:00:00 Completed [facility] Pneumococcal 7 Conjugate, PCV7 (Prevnar7) 2004 00:00:00 Completed [facility] IPV 2004 00:00:00 Completed [facility] DTaP, Unspecified Formulation 2004 00:00:00 Completed [facility] Hep B, Adol or Pedi Dosage 2004 00:00:00 Completed [facility] HIB 4 Dose Schedule 2004 00:00:00 Completed [facility] Pneumococcal 7 Conjugate, PCV7 (Prevnar7) 2004 00:00:00 Completed [facility] IPV 2004 00:00:00 Completed [facility] Hep B, Adol or Pedi Dosage 2004 00:00:00 Completed [facility] Hep B, Adol or Pedi Dosage 2004 00:00:00 Completed [facility] Hep B, Adol or Pedi Dosage 2004 00:00:00 Completed [facility] Hep B, Adol or Pedi Dosage 2004 00:00:00 Completed [facility] Hep B, Adol or Pedi Dosage 2004 00:00:00 Completed [facility] Hep B, Adol or Pedi Dosage 2004 00:00:00 Completed Hep B, Adol or Pedi Dosage 2004 00:00:00 Completed [facility] Hep B, Adol or Pedi Dosage 2004 00:00:00 Completed [facility] Hep B, Adol or Pedi Dosage 2004 00:00:00 Completed [facility] Hep B, Adol or Pedi Dosage 2004 00:00:00 Completed [facility] Hep B, Adol or Pedi Dosage 2004 00:00:00 Completed [facility] Hep B, Adol or Pedi Dosage 2004 00:00:00 Completed [facility] Hep B, Adol or Pedi Dosage 2004 00:00:00 Completed [facility] Hep B, Adol or Pedi Dosage 2004 00:00:00 Completed [facility] Hep B, Adol or Pedi Dosage 2004 00:00:00 Completed [facility] Hep B, Adol or Pedi Dosage 2004 00:00:00 Completed [facility] Hep B, Adol or Pedi Dosage 2004 00:00:00 Completed [facility] HPV Unknown Completed [facility] HPV9 Unknown Completed [facility] Meningococcal Polysaccharide (groups A, C, Y and W-135) conjugate vaccine (MCV4P) Unknown Completed [facility] TDAP Unknown Completed [facility] Influenza Virus Vaccine Quad IM, Preserv and ABX Free 6 MO-64 YRS (FLUCELVAX) Unknown Completed [facility] PPD (TB) Unknown Completed [facility] SARS-COV-2 COVID-19 MODERNA 12+ YRS VACCINE Unknown Completed [facility] DTaP, Unspecified Formulation Unknown Completed [facility] Pediarix (dtap/hep B/ipv) Unknown Completed [facility] Dtap/ipv Unknown Completed [facility] Influenza Virus Vaccine Nasal Unknown Completed [facility] HEPATITIS A Unknown Completed [facility] HEPA-PEDS Unknown Completed [facility] Hep B, Adol or Pedi Dosage Unknown Completed [facility] HIB 4 Dose Schedule Unknown Completed [facility] MMR Unknown Completed [facility] Pneumococcal 7 Conjugate, PCV7 (Prevnar7) Unknown Completed [facility] IPV Unknown Completed [facility] Varicella (varivax)(chicken pox) Unknown Completed [facility] Meningococcal B, OMV Unknown Completed [facility] HPV Unknown Completed [facility] HPV9 Unknown Completed [facility] Meningococcal Polysaccharide (groups A, C, Y and W-135) conjugate vaccine (MCV4P) Unknown Completed [facility] TDAP Unknown Completed [facility] Influenza Virus Vaccine Quad IM, Preserv and ABX Free 6 MO-64 YRS (FLUCELVAX) Unknown Completed [facility] PPD (TB) Unknown Completed [facility] SARS-COV-2 COVID-19 MODERNA 12+ YRS VACCINE Unknown Completed [facility] DTaP, Unspecified Formulation Unknown Completed [facility] Pediarix (dtap/hep B/ipv) Unknown Completed [facility] Dtap/ipv Unknown Completed [facility] Influenza Virus Vaccine Nasal Unknown Completed [facility] HEPATITIS A Unknown Completed [facility] HEPA-PEDS Unknown Completed [facility] Hep B, Adol or Pedi Dosage Unknown Completed [facility] HIB 4 Dose Schedule Unknown Completed [facility] MMR Unknown Completed [facility] Pneumococcal 7 Conjugate, PCV7 (Prevnar7) Unknown Completed [facility] IPV Unknown Completed [facility] Varicella (varivax)(chicken pox) Unknown Completed [facility] Meningococcal B, OMV Unknown Completed [facility] Vital Signs Vital Name Observation Time Observation Value Comments S ource Systolic blood pressure 2024-06-20 23:00:00 116 mm[Hg] [facility] Diastolic blood pressure 2024-06-20 23:00:00 79 mm[Hg] [facility] Heart rate 2024-06-20 23:00:00 82 /min [facility] Body temperature 2024-06-20 23:00:00 36.28 Darcie [facility] Respiratory rate 2024-06-20 23:00:00 16 /min [facility] Body weight 2024-06-20 23:00:00 99.383 kg [facility] Oxygen saturation in Arterial blood by Pulse oximetry 2024-06-20 23:00:00 100 /min [facility] Systolic blood pressure 2024-04-22 20:08:00 97 mm[Hg] [facility] Diastolic blood pressure 2024-04-22 20:08:00 63 mm[Hg] [facility] Heart rate 2024-04-22 20:08:00 89 /min [facility] Body temperature 2024-04-22 20:08:00 36.67 Darcie [facility] Respiratory rate 2024-04-22 20:08:00 18 /min [facility] Body height 2024-04-22 20:08:00 157.5 cm [facility] Body weight 2024-04-22 20:08:00 97.07 kg [facility] BMI 2024-04-22 20:08:00 39.14 kg/m2 [facility] Systolic blood pressure 2024-01-23 21:19:00 124 mm[Hg] [facility] Diastolic blood pressure 2024-01-23 21:19:00 76 mm[Hg] [facility] Heart rate 2024-01-23 21:19:00 74 /min [facility] Body temperature 2024-01-23 21:19:00 35.78 Darcie [facility] Respiratory rate 2024-01-23 21:19:00 18 /min [facility] Body weight 2024-01-23 21:19:00 95.437 kg [facility] Systolic blood pressure 2023-12-30 21:21:00 111 mm[Hg] [facility] Diastolic blood pressure 2023-12-30 21:21:00 72 mm[Hg] [facility] Heart rate 2023-12-30 21:21:00 85 /min [facility] Body temperature 2023-12-30 21:21:00 36.72 Darcie [facility] Respiratory rate 2023-12-30 21:21:00 18 /min [facility] Body height 2023-12-30 21:21:00 157.5 cm [facility] Body weight 2023-12-30 21:21:00 93.26 kg [facility] BMI 2023-12-30 21:21:00 37.60 kg/m2 [facility] Systolic blood pressure 2023-12-25 19:29:00 139 mm[Hg] [facility] Diastolic blood pressure 2023-12-25 19:29:00 87 mm[Hg] [facility] Heart rate 2023-12-25 19:29:00 100 /min [facility] Body temperature 2023-12-25 19:29:00 37.17 Darcie [facility] Respiratory rate 2023-12-25 19:29:00 18 /min [facility] Body height 2023-12-25 19:29:00 157.5 cm [facility] Body weight 2023-12-25 19:29:00 91.853 kg [facility] BMI 2023-12-25 19:29:00 37.04 kg/m2 [facility] Oxygen saturation in Arterial blood by Pulse oximetry 2023-12-25 19:29:00 96 /min [facility] Systolic blood pressure 2023-07-23 16:22:00 127 mm[Hg] [facility] Diastolic blood pressure 2023-07-23 16:22:00 81 mm[Hg] [facility] Heart rate 2023-07-23 16:22:00 101 /min [facility] Body temperature 2023-07-23 16:22:00 36.83 Darcie [facility] Respiratory rate 2023-07-23 16:22:00 16 /min [facility] Body weight 2023-07-23 16:22:00 92.987 kg [facility] Oxygen saturation in Arterial blood by Pulse oximetry 2023-07-23 16:22:00 99 /min [facility] Systolic blood pressure 2022-06-25 17:19:00 108 mm[Hg] [facility] Diastolic blood pressure 2022-06-25 17:19:00 74 mm[Hg] [facility] Heart rate 2022-06-25 17:19:00 91 /min [facility] Body temperature 2022-06-25 17:19:00 36.33 Darcie [facility] Respiratory rate 2022-06-25 17:19:00 18 /min [facility] Body height 2022-06-25 17:19:00 157.5 cm [facility] Body weight 2022-06-25 17:19:00 93.441 kg [facility] BMI 2022-06-25 17:19:00 37.68 kg/m2 [facility] Body mass index (BMI) [Percentile] Per age and sex 2022-06-25 17:19:00 98.35 % [facility] Oxygen saturation in Arterial blood by Pulse oximetry 2022-06-25 17:19:00 99 /min [facility] Systolic blood pressure 2022-05-17 20:39:00 118 mm[Hg] [facility] Diastolic blood pressure 2022-05-17 20:39:00 74 mm[Hg] [facility] Heart rate 2022-05-17 20:39:00 89 /min [facility] Body temperature 2022-05-17 20:39:00 36.72 Darcie [facility] Respiratory rate 2022-05-17 20:39:00 18 /min [facility] Body height 2022-05-17 20:39:00 157.5 cm [facility] Body weight 2022-05-17 20:39:00 93.441 kg [facility] BMI 2022-05-17 20:39:00 37.68 kg/m2 [facility] Body mass index (BMI) [Percentile] Per age and sex 2022-05-17 20:39:00 98.38 % [facility] Systolic blood pressure 2022-03-01 20:06:00 109 mm[Hg] [facility] Diastolic blood pressure 2022-03-01 20:06:00 69 mm[Hg] [facility] Heart rate 2022-03-01 20:06:00 92 /min [facility] Body temperature 2022-03-01 20:06:00 36.83 Darcie [facility] Body height 2022-03-01 20:06:00 157.5 cm [facility] Body weight 2022-03-01 20:06:00 92.08 kg [facility] BMI 2022-03-01 20:06:00 37.13 kg/m2 [facility] Body mass index (BMI) [Percentile] Per age and sex 2022-03-01 20:06:00 98.33 % [facility] Systolic blood pressure 2022-02-22 18:49:00 106 mm[Hg] [facility] Diastolic blood pressure 2022-02-22 18:49:00 70 mm[Hg] [facility] Heart rate 2022-02-22 18:49:00 89 /min [facility] Body temperature 2022-02-22 18:49:00 36.61 Darcie [facility] Body height 2022-02-22 18:49:00 157.5 cm [facility] Body weight 2022-02-22 18:49:00 91.627 kg [facility] BMI 2022-02-22 18:49:00 36.95 kg/m2 [facility] Body mass index (BMI) [Percentile] Per age and sex 2022-02-22 18:49:00 98.30 % [facility] Oxygen saturation in Arterial blood by Pulse oximetry 2022-02-22 18:49:00 98 /min [facility] Systolic blood pressure 2022-02-15 16:00:00 115 mm[Hg] [facility] Diastolic blood pressure 2022-02-15 16:00:00 77 mm[Hg] [facility] Heart rate 2022-02-15 16:00:00 86 /min [facility] Body temperature 2022-02-15 16:00:00 36.83 Darcie [facility] Respiratory rate 2022-02-15 16:00:00 17 /min [facility] Body height 2022-02-15 16:00:00 157.5 cm [facility] Body weight 2022-02-15 16:00:00 90.629 kg [facility] BMI 2022-02-15 16:00:00 36.54 kg/m2 [facility] Body mass index (BMI) [Percentile] Per age and sex 2022-02-15 16:00:00 98.21 % [facility] Systolic blood pressure 2021-11-27 15:18:00 118 mm[Hg] [facility] Diastolic blood pressure 2021-11-27 15:18:00 75 mm[Hg] [facility] Heart rate 2021-11-27 15:18:00 58 /min [facility] Body height 2021-11-27 15:18:00 157.5 cm [facility] Body weight 2021-11-27 15:18:00 90.13 kg [facility] BMI 2021-11-27 15:18:00 36.34 kg/m2 [facility] Body mass index (BMI) [Percentile] Per age and sex 2021-11-27 15:18:00 98.23 % [facility] Oxygen saturation in Arterial blood by Pulse oximetry 2021-11-27 15:18:00 100 /min [facility] Systolic blood pressure 2021-02-15 17:28:00 123 mm[Hg] [facility] Diastolic blood pressure 2021-02-15 17:28:00 77 mm[Hg] [facility] Heart rate 2021-02-15 17:28:00 96 /min [facility] Body temperature 2021-02-15 17:28:00 36.78 Darcie [facility] Respiratory rate 2021-02-15 17:28:00 18 /min [facility] Body height 2021-02-15 17:28:00 154.9 cm [facility] Body weight 2021-02-15 17:28:00 87.998 kg [facility] BMI 2021-02-15 17:28:00 36.66 kg/m2 [facility] Body mass index (BMI) [Percentile] Per age and sex 2021-02-15 17:28:00 98.52 % [facility] Procedures Procedure Date / Time Performed Performing Clinician Source POCT TEST 2024-01-23 00:00:00 Octaviano Velasquez [facility] POCT TEST 2023-12-30 21:35:00 Octaviano Velasquez [facility] POCT MOLECULAR STREP 2023-07-23 16:26:00 Unknown, Amarilis mcguire [facility] POCT MOLECULAR STREP 2022-06-25 17:23:00 Unknown, Amarilis mcguire [place] [facility] PATIENT FINANCIAL POLICY 2022-06-25 17:10:22 Doctor Unassigned, Inger [facility] MENINGOCOCCAL B VACCINE, OMV, 2 DOSE, IM 2022-06-12 14:23:04 Sienna Romero [facility] SARS-COV-2 COVID-19 VACCINE, 12+ YRS, 0.5ML, IM (MODERNA) 2022-04-05 20:26:06 Doctor Unassigned, Inger [facility] CONSENT FOR CONTRACEPTION 2022-03-01 06:01:00 Doctor Unassigned, Inger [facility] POCT TEST 2022-03-01 00:00:00 Octaviano Velasquez [facility] SARS-COV-2 COVID-19 VACCINE, 12+ YRS, 0.5ML, IM (MODERNA) 2022-01-17 14:35:16 Doctor Unassigned, Inger [facility] PPD (TB) 2021-11-27 15:27:31 Sienna Romero [facility] PPD (TB) 2021-11-27 15:20:00 Sienna Romero [facility] FLU VACC (), 6 MO-64 YRS, .5ML, IM, QUAD (FLUCELVAX) 2021-11-21 13:34:42 Doctor Unassigned, Inger [facility] Encounters Start Date/Time End Date/Time Encounter Type Admission Type Attending Clinicians Care Facility Care Department Encounter ID Source 2024-12-30 09:30:00 2024-12-30 09:30:00 Outpatient R OCTAVIANO VELASQUEZ VIEN [facility] [id number] [facility] 2024-06-20 18:30:00 2024-06-20 18:30:00 Nurse Visit Nurse, [facility] Unknown, Attending Nurse, [facility] Y[facility]TTE[facility] 1.2.840.114 350.1.13.10 4.2.7.2.686 [id number] [facility] 2024-06-20 18:30:00 2024-06-20 18:13:49 Outpatient Dakota MILLAN SUE [facility] [id number] [facility] 2024-05-05 00:00:00 2024-06-06 18:19:13 Patient Secure Msg Doctor Unassigned, Inger Doctor Unassigned, Inger [facility] BUILDING 1.2.840.114 350.1.13.10 4.2.7.2.686 [id number] [facility] 2024-04-22 14:00:00 2024-04-22 14:28:11 Office Visit Octaviano Velasquez [facility] BUILDING 1.2.840.114 350.1.13.10 4.2.7.2.686 [id number] [facility] 2024-04-22 14:00:00 2024-04-22 14:28:11 Outpatient R OCTAVIANO VELASQUEZ [facility] [id number] [facility] 2024-01-23 15:00:00 2024-01-23 15:44:01 Outpatient R OCTAVIANO VELASQUEZ OCTAVIANO [facility] [id number] [facility] 2024-01-23 15:00:00 2024-01-23 15:44:01 Office Visit Octaviano Velasquez [facility] BUILDING 1.2.840.114 350.1.13.10 4.2.7.2.686 [id number] [facility] 2024-01-21 00:00:00 2024-01-21 14:51:28 Telephone Octaviano Velasquez [facility] BUILDING 1.2.840.114 350.1.13.10 4.2.7.2.686 [id number] [facility] 2023-12-30 15:45:00 2023-12-30 16:00:00 Tile Setter Apprentice Visit 2, Adc Lab Octaviano Velasquez 2, Adc Lab [facility] BUILDING 1..840.114 350.1.13.10 4.2.7.2.686 [id number] [facility] 2023-12-30 15:15:00 2023-12-30 15:38:44 Outpatient R OCTAVIANO VELASQUEZ VIEN [facility] [id number] [facility] 2023-12-30 15:15:00 2023-12-30 15:38:44 Office Visit Kori Velasquezangela Garcia [facility] BUILDING 1.840.114 350.1.13.10 4.2.7.2.686 [id number] [facility] 2023-12-25 13:20:00 2023-12-25 14:00:19 Outpatient R DARA DE LOS SANTOS [facility] [id number] [facility] 2023-12-25 13:20:00 2023-12-25 14:00:19 Urgent Care Dara De Los Santos Unknown, Attending [facility] 1..840.114 350.1.13.10 4.2.7.2.686 [id number] [facility] 2023-07-23 11:20:00 2023-07-23 11:38:00 Outpatient R DARA DE LOS SANTOS [facility] [id number] [facility] 2023-07-23 11:20:00 2023-07-23 11:38:00 Urgent Care Dara De Los Santos Unknown, Attending [facility] BUILDING 1..840.114 350.1.13.10 4.2.7.2.686 [id number] [facility] 2023-02-20 10:30:00 2023-02-20 10:30:00 Outpatient R OCTAVIANO VELASQUEZ [facility] [id number] [facility] 2023-02-07 00:00:00 2023-02-07 00:00:00 Pre Visit Outreach Soha Mina 1.84.114 350.1.13.10 4.2.7.2.686 [id number] [facility] 2022-06-25 12:00:00 2022-06-25 13:00:56 Outpatient R LEONEL GARCIA [facility] [id number] [facility] 2022-06-25 12:00:00 2022-06-25 13:00:56 Urgent Care Leonel Garcia Unknown, Attending [facility] BU[facility] 1.84.114 350.1.13.10 4.2.7.2.686 [id number] [facility] 2022-06-25 00:00:00 2022-06-25 00:00:00 Orders Only Doctor Unassigned, Inger [facility] 1..114 350.1.13.10 4.2.7.2.686 [id number] [facility] 2022-06-25 00:00:00 2022-06-25 00:00:00 Letter (Out) Leonel Garcia [facility] BU[facility] 1.84.114 350.1.13.10 4.2.7.2.686 [id number] [facility] 2022-06-12 08:40:00 2022-06-12 09:00:00 Nurse Visit Nurse, Sienna Camp [facility] BU[facility] 1.84.114 350.1.13.10 4.2.7.2.686 [id number] 044 [id number] [facility] 2022-06-12 08:40:00 2022-06-12 08:40:00 Outpatient R SIENNA ROMERO [facility] [id number] [facility] 2022-06-12 00:00:00 2022-06-12 00:00:00 Letter (Out) Melaniaagustin [facility] BU[facility] 1.84.114 350.1.13.10 4.2.7.2.686 [id number] [facility] 2022-05-30 13:00:00 2022-05-30 13:00:00 Outpatient R MENDOZAKAYLENE [facility] [id number] [facility] 2022-05-17 15:30:00 2022-05-17 15:50:47 Outpatient R MENDOZAKAYLENE [facility] [id number] [facility] 2022-05-17 15:30:00 2022-05-17 15:50:47 Office Visit [facility] 1.84.114 350.1.13.10 4.2.7.2.686 [id number] [facility] 2022-05-17 00:00:00 2022-05-17 00:00:00 Letter (Out) Filiberto [facility] BUILDING 1.84.114 350.1.13.10 4.2.7.2.686 [id number] [facility] 2022-04-05 14:00:00 2022-04-05 14:25:32 Imm/Inj Visit Vaccine, Ang Db Cbc [facility] 1.84.114 350.1.13.10 4.2.7.2.686 [id number] [facility] 2022-04-05 14:00:00 2022-04-05 14:00:00 Outpatient R SIENNA ROMERO [facility] [id number] [facility] 2022-04-05 00:00:00 2022-04-05 00:00:00 Letter (Out) Sienna Romero [facility] 1.2.840.114 350.1.13.10 4.2.7.2.686 [id number] [facility] 2022-03-01 14:00:00 2022-03-01 14:27:05 Outpatient R OCTAVIANO VELASQUEZ [facility] [id number] [facility] 2022-03-01 14:00:00 2022-03-01 14:27:05 Office Visit Octaviano Velasquez [facility] 1.2.840.114 350.1.13.10 4.2.7.2.686 [id number] [facility] 2022-03-01 00:00:00 2022-03-01 00:00:00 Letter (Out) Octaviano Velasquez [facility] BUILDING 1.2.840.114 350.1.13.10 4.2.7.2.686 [id number] [facility] 2022-03-01 00:00:00 2022-03-01 00:00:00 Orders Only Doctor Unassigned, Inger [facility] 1.284.114 350.1.13.10 4.2.7.2.686 [id number] [facility] 2022-02-22 12:30:00 2022-02-22 13:10:27 Outpatient R ASIYA HONG [facility] [id number] [facility] 2022-02-22 12:30:00 2022-02-22 13:10:27 Office Visit Asiya Hong [facility] Y[facility]TTE?[facility] BU[facility] 1.84114 350.1.13.10 4.2.7.2.686 [id number] [facility] 2022-02-22 00:00:00 2022-02-22 00:00:00 Letter (Out) Asiya Hong [facility] Y[facility]TTE?[facility] BUILD[facility] 1.114 350.1.13.10 4.2.7.2.686 [id number] 044 [id number] [facility] 2022-02-15 10:30:00 2022-02-15 10:35:24 Tile Setter Apprentice Visit 2, Adc Lab Dara De Los Santos [facility] 1.84.114 350.1.13.10 4.2.7.2.686 [id number] [facility] 2022-02-15 10:00:00 2022-02-15 10:25:46 Outpatient R FILIBERTO [facility] [id number] [facility] 2022-02-15 10:00:00 2022-02-15 10:25:46 [facility] 1.84.114 350.1.13.10 4.2.7.2.686 [id number] [facility] 2022-02-15 10:00:00 2022-02-15 10:00:00 Outpatient R FILIBERTO [facility] [id number] [facility] 2022-01-17 08:00:00 2022-01-17 08:10:00 Imm/Inj Visit Vaccine, Ang Db Cbc Fam [facility]anya [facility]a [facility] 1.84.114 350.1.13.10 4.2.7.2.686 [id number] [id number] [facility] 2022-01-17 08:00:00 2022-01-17 08:00:00 Outpatient SIENNA WASHINGTON [facility] [id number] [facility] 2022-01-17 00:00:00 2022-01-17 00:00:00 [facility] 1.2.840.114 350.1.13.10 4.2.7.2.686 [id number] [facility] 2021-11-30 08:00:00 2021-11-30 08:00:00 Outpatient SIENNA WASHINGTON [facility] [id number] [facility] 2021-11-29 08:00:00 2021-11-29 08:20:00 Nurse Visit Nurse, Talib Dale [facility] 1.2.840.114 350.1.13.10 4.2.7.2.686 [id number] [facility] 2021-11-29 08:00:00 2021-11-29 08:00:00 Outpatient SIENNA WASHINGTON [facility] [id number] [facility] 2021-11-29 00:00:00 2021-11-29 00:00:00 Letter (Out[facility] 1.2.840.114 350.1.13.10 4.2.7.2.686 [id number] [facility] 2021-11-28 10:00:00 2021-11-28 10:00:00 Outpatient SIENNA WASHINGTON [facility] [id number] [facility] 2021-11-27 10:00:00 2021-11-27 10:56:40 Outpatient Dakota ANENE[facility] [id number] [facility] 2021-11-27 10:00:00 2021-11-27 10:56:40 Office Visit Jany Romerothia [facility] 1.114 350.1.13.10 4.2.7.2.686 [id number] [id number] [facility] 2021-11-27 00:00:00 2021-11-27 00:00:00 Letter (Out) [facility] 1.114 350.1.13.10 4.2.7.2.686 [id number] [id number] [facility] 2021-11-21 08:00:00 2021-11-21 08:10:00 Imm/Inj Visit Vaccine, Ang Db Cbc Fam Elizabeth Hoffman [facility] Y[facility]TTE?[facility] OFF[facility] BUILD[facility] 1.114 350.1.13.10 4.2.7.2.686 [id number] [facility] 2021-11-21 08:00:00 2021-11-21 08:00:00 Outpatient R [facility] [id number] [facility] 2021-11-21 08:00:00 2021-11-21 08:00:00 Outpatient R ELIZABETH HOFFMAN [facility] [id number] [facility] 2021-11-21 00:00:00 2021-11-21 00:00:00 Letter (Out) Heather [facility] Y[facility]LETTE?[facility] BU[facility] 1.84.114 350.1.13.10 4.2.7.2.686 [id number] 044 [id number] [facility] 2021-02-15 11:00:00 2021-02-15 11:52:05 Office Visit Dara De Los Santos [facility] YISEL [facility] NAL BUILDING 1.114 350.1.13.10 4.2.7.2.686 [id number] [facility] 2021-02-15 11:00:00 2021-02-15 11:52:05 [facility]patient [facility] [id number] [facility] 2021-02-15 11:00:00 2021-02-15 11:00:00 Outpatient Dakota DE [facility]ANTOS [facility] [id number] [facility] 2021-02-15 00:00:00 2021-02-15 00:00:00 Orders Only Doctor Unassigned, Inger [facility] .840.114 350.1.13.10 4.2.7.2.686 [id number] [facility] 2021-02-09 13:00:00 2021-02-09 13:00:00 Outpatient Dakota DE LOS SANTOS [facility] [id number] [facility] 2020-02-10 13:11:56 2020-02-10 13:41:56 Office Visit Dara De Los Santos [facility] 1.840.114 350.1.13.10 4.2.7.2.686 [id number] [facility] 2020-02-10 13:00:00 2020-02-10 13:00:00 Outpatient Dakota DE LOS SANTOS [facility] [id number] [facility] 2020-01-11 08:00:00 2020-01-11 08:00:00 Outpatient Dakota DE LOS SANTOS [facility] [id number] [facility] 2019-11-23 00:00:00 2019-11-23 00:00:00 Telephone Sienna Romero [facility] 1..840.114 350.1.13.10 4.2.7.2.686 [id number] [facility] 2019-11-20 13:30:07 2019-11-20 13:50:07 Urgent Care Provider, [facility] 1.2.840.114 350.1.13.10 4.2.7.2.686 [id number] [facility] 2019-11-20 13:40:00 2019-11-20 13:40:00 Outpatient R [facility] [id number] [facility] 2019-08-28 00:00:00 2019-08-28 00:00:00 Telephone Buddy Staples [facility] 1.2.840.114 350.1.13.10 4.2.7.2.686 [id number] [facility] 2019-08-27 17:20:00 2019-08-27 17:20:00 Outpatient R [facility] [id number] [facility] 2019-08-27 16:16:51 2019-08-27 16:36:51 Laboratory Only Lab, Adc Fam Pob I Heather [facility] 1.2.840.114 350.1.13.10 4.2.7.2.686 [id number] [facility] 2019-05-11 14:00:00 2019-05-11 14:00:00 Outpatient R DARA DE LOS SANTOS [facility] [id number] [facility] 2019-05-11 13:30:00 2019-05-11 13:30:00 Outpatient R GINNY REIS [facility] [id number] [facility] Results Test Description Test Time Test Comments Results Result Co [facility]ments [id number] 21:35:00* Test Item Value Reference Range Interpretation Comme nts POCT PREG (test code = 1605) Negative On board controls acceptable with C Line (test code = 3574) Yes POCT PREG LOT # (test code = 3575) POCT PREG TEST DATE ( test code = 3576) [facility] MOLECULAR [id number] 16:30:40* Test Item Value Reference Range Interpretation Comme nts POCT Molecular Strep (test c ode = 17390-3) Positive Negative A Lab Interpretation (test cod e = 88069-8) Abnormal [facility] MOLECULAR [id number] 17:30:22* Test Item Value Reference Range Interpretation Comme nts POCT Molecular Strep (test c ode = 92796-5) Negative Negative Lab Interpretation (test cod e = 11768-6) Normal [facility] [id number] 20:13:00* Test Item Value Reference Range Interpretation Comme nts POCT PREG (test code = 1605) Negative On board controls acceptable with C Line (test code = 3574) Yes POCT PREG LOT # (test code = 3575) POCT PREG TEST DATE ( test code = 3576) [facility] [id number] 20:13:00* Test Item Value Reference Range Interpretation Comme nts POCT PREG (test code = 1605) Negative On board controls acceptable with C Line (test code = 3574) Yes POCT PREG LOT # (test code = 3575) POCT PREG TEST DATE ( test code = 3576) [facility] Notes Date/Time Note Provider Source 2024-01-21 14:51:11 Per Alex- bring in and may OB. Name and verified. Appt made. MELODY CHILDRESS RN 01/21/2024 2:51 PM RAGE SPECIALIST Melody Childress RN [facility] 2024-01-21 14:45:25 Name and DB verified. Pt state her first stay of cycle was 01/16/2024. Would like the patch as discussed. Will forward to Dr. Velasquez. MELODY CHILDRESS RN 01/21/2024 2:[address] [facility] 2024-01-21 14:03:37 Anna Mishra is a 18 year old female Pt states that she was to call office once she started her mens cycle regarding control consult. Thanks Gordillo [facility] 2023-12-30 15:45:00 Images from the original note were not included. Venipuncture collection performed by clean technique on the right anticubitus. Total of 1 attempts were made. Slight pressure and a bandage/dressing were applied to the site(s). The patient experienced no complications. The following specimens were processed according to instructions and sent to [facility] laboratories per lab order on 12/30/2023: LT BLUE SST 2 RED 1 LAV PPT DK GREEN (LiHep) DK GREEN (SodH) MENDEZ DK BLUE (K2) DK BLUE (S) ACD Blood Culture NIPT/NTD [facility]
[2024-06-20] MEDS ORDERED: METOCLOPRAMIDE 10 MG/2mL INJ ONE (21:10)
[2024-06-20] MEDS ORDERED: NA CHLORIDE 0.9% 1,000 ML ONE (21:10)
[2024-06-20] MEDS ORDERED: DIPHENHYDRAMINE 50 MG/ML VIAL ONE (21:10)
[2024-06-20 21:38] LABS: Albumin 3.6 g/dL (3.4-5.0); Albumin/Globulin Ratio 0.8 (1.1-1.8); Anion Gap 9.7 mEq/L (5.0-15.0); Bilirubin Total 0.2 mg/dL (0.2-1.0); Globulin 4.6 g/dL (2.3-3.5); Potassium 3.7 mEq/L (3.5-5.1); Protein, Total 8.2 g/dL (6.4-8.2)
[2024-06-20 21:39] LABS: Absolute Basophils 0.1 K/uL (0-0.5); Absolute Eosinophils 0.5 K/uL (0-0.5); Absolute Lymphocytes (CBC) 3.9 K/uL (0.7-4.9); Absolute Monocytes 0.7 K/uL (0.1-1.3); Absolute Neutrophil 7.3 K/uL (1.8-8.0); Basophils % 0.4 % (0-1.3); Eosinophils % 4.3 % (0-4.4); Hematocrit 38.1 % (36.0-45.0); Hemoglobin 12.6 g/dL (12.0-15.0); Lymphocytes % 31.1 % (15.3-44.8); MCH 24.3 pg (27.0-35.0); MCHC 33.2 g/dL (32.0-36.0); MCV 73.4 fL (80-100); MPV 9.6 fL (7.6-11.3); Neutrophils % 58.2 % (41.7-73.7); Nucleated Red Blood Cells % 0.1 % (0-0); Platelets 337 thou/uL (152-406); RBC Red Blood Cell Count 5.19 M/uL (3.86-4.86); Red Cell Distribution Width 13.7 % (12.1-15.2)
[2024-06-20 21:43] LABS: PTT, Activated Partial Thromb 34.2 SECONDS (27.2-37.4); Protime INR 1.06
--- NOTE | 2024-06-20 21:53 | RAD REPORT ---
EXAM: CT Head Brain Wo Cont HISTORY: Headache;Dizziness COMPARISON: None TECHNIQUE: Multiple contiguous axial images were obtained for a CT of the brain without contrast. Sag ittal and coronal reformats were performed. One or more of the following dose reduction techniques were used: Automated exposure control, adjus tment of the mA and kV according to patient size, and iterative reconstruction. Unless otherwise specified, incidental findings do not require dedicated imaging follow-up. FINDINGS: No evidence of hydrocephalus, intracranial hemorrhage, or extra-axial fluid collection. The brain is normal in morphology. The calvarium is intact. The visualized paranasal sinuses and mastoid air cells are essentially clear . IMPRESSION: No evidence of acute intracranial abnormality.
[2024-06-20 22:33] LABS: Specific Gravity 1.022 (1.005-1.030); Urine Clarity Extremely Turbid (Clear); Urine Color Light-Yellow (Yellow)
[2024-06-20 22:34] LABS: Urine Bilirubin NEGATIVE (Negative); Urine Blood 3+ (Negative); Urine Glucose Negative (Negative); Urine Ketones NEGATIVE (Negative); Urine Nitrite NEGATIVE (Negative); Urine Protein NEGATIVE (Negative); Urine Urobilinogen Normal mg/dL (0.2-1.0)
[2024-06-20 22:35] LABS: Urine Micro Reflex YN NO BILL MICROSCOPIC
[2024-06-20 22:52] LABS: Urine Bacteria <20 /HPF (<20)
[2024-06-20 22:53] LABS: Urine Mucus Slight /HPF (None Seen)
[2024-06-20 23:38] LABS: Specific Gravity 1.022 (1.005-1.030)
--- NOTE | 2024-06-21 00:02 | EDPHYS ---
Physician Documentation [facility] Name: Berenice Mishra Age: 19 yrs Sex: Female : 2005 Arrival Date: 06/20/2024 Time: 20:10 Bed 16 Private MD: ED Physician Alfie Lucio HPI: 06/20 20:52 This 19 yrs old Female presents to ER via Ambulatory with complaints of cp Nausea, Dizziness. 20:52 The patient complains of pain to the top of head and back of head. The patient cp describes the headache as aching, constant, waxing and waning. Onset: The symptoms/episode began/occurred 3 day(s) ago. 20:52 The patient presents to the emergency department with nausea. Associated signs and cp symptoms: Pertinent positives: dizziness, Pertinent negatives: altered mental status, fever, neck stiffness, paresthesias, weakness, vision changes. Severity of symptoms: in the emergency department the pain is unchanged, despite home interventions. Headache History: Other denies HX of migraine headaches. 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 - Infectious Disease History:: Denies. - Social history:: Smoking status: Patient denies any tobacco usage or history of. Patient uses alcohol, occasionally. Patient/guardian denies using street drugs. ROS: 20:55 Constitutional: Negative for body aches, chills, fever, poor PO intake, cp 20:55 Eyes: Negative for injury, pain, redness, and discharge, cp 20:55 ENT: Negative for drainage from ear(s), ear pain, sore throat, difficulty swallowing, difficulty handling secretions, 20:55 Cardiovascular: Negative for chest pain, 20:55 Respiratory: Negative for cough, shortness of breath, wheezing, 20:55 Abdomen/GI: Positive for nausea, Negative for abdominal pain, vomiting, diarrhea, 20:55 Neuro: Positive for dizziness, headache, Negative for altered mental status, numbness, syncope, weakness, Exam: 21:00 Constitutional: The patient appears in no acute distress, alert, awake, non-toxic, well cp developed, well nourished, overweight 21:00 Head/Face: Normocephalic, atraumatic. cp 21:00 Eyes: Periorbital structures: appear normal, Pupils: equal, round, and reactive to light and accomodation, Extraocular movements: intact throughout, Conjunctiva: normal, no exudate, no injection, Sclera: no appreciated abnormality, Lids and lashes: appear normal, bilaterally, 21:00 ENT: External ear(s): are unremarkable, Ear canal(s): are normal, clear, TM's: dullness, bilaterally, Nose: is normal, Mouth: Lips: moist, Oral mucosa: moist, Posterior pharynx: Airway: no evidence of obstruction, patent, 21:00 Neck: ROM/movement: is normal, is supple, without pain, no range of motions limitations, no meningismus, no nuchal rigidity, 21:00 Chest/axilla: Inspection: normal, 21:00 Cardiovascular: Rate: normal, Rhythm: regular, 21:00 Respiratory: the patient does not display signs of respiratory distress, Respirations: normal, no use of accessory muscles, no retractions, labored breathing, is not present, Breath sounds: are clear throughout, no decreased breath sounds, no stridor, no wheezing, 21:00 Abdomen/GI: Inspection: abdomen appears normal, Palpation: abdomen is soft and non-tender, in all quadrants, 21:00 Back: pain, is absent, ROM is normal, 21:00 Neuro: Orientation: to person, place \T\ time. Mentation: is normal, Cerebellar function: is grossly normal, Motor: moves all fours, strength is normal, Sensation: is normal, Gait: is steady, at a normal pace, without difficulty, Vital Signs: 20:44 BP 123 / 88; Pulse 92; Resp 16 S; Temp 98.9(O); Pulse Ox 100% on R/A; Weight 90.72 kg lg3 (R); Height 5 ft. 1 in. (R); Pain 5/10; 22:03 BP 112 / 86 Supine; Pulse 111; Pulse Ox 100% on R/A; lg3 22:03 BP 114 / 81 Sitting; Pulse 101; Pulse Ox 99% on R/A; lg3 22:03 BP 112 / 86 Standing; Pulse 104; Pulse Ox 100% on R/A; lg3 23:31 BP 110 / 75; Pulse 86; Resp 16 S; Pulse Ox 99% on R/A; lg3 06/21 00:50 BP 114 / 77; Pulse 89; Resp 17 S; Pulse Ox 100% on R/A; lg3 06/20 20:44 Body Mass Index 37.79 (90.72 kg, 154.94 cm) 3 06/20 20:44 Pain Scale: Adult lg3 MDM: 06/20 20:28 Medical Screening Exam initiated cp 06/21 00:00 Data reviewed: vital signs, nurses notes, lab test result(s), radiologic studies, CT cp scan, and as a result, I will discharge patient. 00:00 Differential diagnosis: hyponatremia, intracerebral hemorrhage, meningoencephalitis, cp migraine, neoplasm, sinusitis, subarachnoid bleed. I considered the following discharge prescriptions or medication management in the emergency department Medications were administered in the Emergency Department. See MAR. Counseling: I had a detailed discussion with the patient and/or guardian regarding the historical points, exam findings, and any diagnostic results supporting the discharge/admit diagnosis, lab results, radiology results, to return to the emergency department if symptoms worsen or persist or if there are any questions or concerns that arise at home. Response to treatment: the patient's symptoms have markedly improved after treatment, and as a result, I will discharge patient. 06/20 20:52 Order name: CBC with Diff; Complete Time: 23:29 06/20 23:29 Interpretation: Normal except: WBC 12.50; RBC 5.19; MCV 73.4; MCH 24.3. 06/20 20:52 Order name: CMP; Complete Time: 23:29 06/20 23:29 Interpretation: Normal except: NA 135; AST 14; ALK 138; GLOB 4.6; A/G 0.8. 06/20 20:52 Order name: Lipase; Complete Time: 23:29 06/20 23:30 Interpretation: Reviewed. 06/20 20:52 Order name: UA W/ Microscopic; Complete Time: 23:29 06/20 23:30 Interpretation: Normal except: [facility] Extremely Turbid; UBLD 3+; URBC 5-10. 06/20 20:52 Order name: PT-INR; Complete Time: 23:29 cp 06/20 23:30 Interpretation: Reviewed. cp 06/20 20:52 Order name: Ptt, Activated; Complete Time: 23:29 cp 06/20 23:30 Interpretation: Reviewed. cp 06/20 23:33 Order name: Test, Urine; Complete Time: 23:58 cp 06/20 23:58 Interpretation: Reviewed. cp 06/20 23:33 Order name: LAB Add On cp 06/20 20:52 Order name: CT Head Brain wo Cont; Complete Time: 23:29 cp 06/20 23:30 Interpretation: Report reviewed. cp 06/20 20:52 Order name: Orthostatic Blood Pressure; Complete Time: 22:06 cp 06/20 20:52 Order name: IV Saline Lock; Complete Time: 21:14 cp 06/20 20:52 Order name: Labs collected and sent; Complete Time: 21:14 cp Administered Medications: 06/20 22:02 Drug: NS 0.9% IV 1000 ml IV at 1 bolus Per protocol; to be given as a bolus over 60 lg3 minutes Route: IV; Rate: 1 bolus; Site: right antecubital; 23:32 Follow up: Response: No adverse reaction; IV Status: Completed infusion; IV Intake: lg3 1000ml 22:02 Drug: metoCLOPramide IVP 10 mg IVP once; over 1 to 2 minutes Route: IVP; Site: right lg3 antecubital; 23:32 Follow up: Response: No adverse reaction lg3 22:02 Drug: diphenhydrAMINE IVP 25 mg IVP once Route: IVP; Site: right antecubital; lg3 23:32 Follow up: Response: No adverse reaction lg3 Disposition: 06/21 01:40 Co-signature as Attending Physician, Alfie Lucio MD I reviewed the patient's care rt provided by the Advanced Practice Provider and agree with the diagnosis and treatment plan. Disposition Summary: 06/21/24 00:01 Discharge Ordered Notes: Location: Home cp Problem: new cp Symptoms: have improved cp Condition: Stable cp Diagnosis - Headache cp - Nausea cp - Dizziness and giddiness cp Followup: cp - With: Private Physician - When: 2 - 3 days - Reason: symptoms continue Discharge Instructions: - Discharge Summary Sheet cp - Dizziness cp - Migraine Headache cp - Nausea, Adult cp Forms: - Medication Reconciliation Form cp - Antibiotic Education cp - Prescription Opioid Use cp - Patient Portal Instructions cp - Leadership Thank You Letter cp Prescriptions: - Ibuprofen 800 mg Oral Tablet - take 1 tablet ORAL route every 8 hours As needed take with food; 30 tablet; cp Refills: 0, Product Selection Permitted - Meclizine 25 mg Oral Tablet - take 1 tablet ORAL route every 8 hours As needed; 30 tablet; Refills: 0, cp Product Selection Permitted - Reglan 10 mg Oral Tablet - take 1 tablet ORAL route every 6 hours take 30 minutes before meals and at cp bedtime; 20 tablet; Refills: 0, Product Selection Permitted Signatures: Dispatcher [employer] EDMS Abel Stahl PA PA cp Able, Lacie, RN RN lg3 Alfie Lucio MD MD rt
--- NOTE | 2024-06-21 00:02 | ER ---
Nurse's Notes [facility] Name: Berenice Mishra Age: 19 yrs Sex: Female : 2005 Arrival Date: 06/20/2024 Time: 20:10 Bed 16 Private MD: Diagnosis: Headache;Nausea;Dizziness and giddiness Presentation: 06/20 20:44 Chief complaint: Patient states: dizzy, nauseous and headache X3 days. Coronavirus lg3 screen: Client denies travel out of the [place] in the last 14 days. At this time, the client does not indicate any symptoms associated with coronavirus-19. Ebola Screen: No symptoms or risks identified at this time. Initial Sepsis Screen: Does the patient meet any 2 criteria? No. Patient's initial sepsis screen is negative. Does the patient have a suspected source of infection? No. Patient's initial sepsis screen is negative. Risk Assessment: Do you want to hurt yourself or someone else? Patient reports no desire to harm self or others. Onset of symptoms was June 18, 2024. 20:44 Method Of Arrival: Ambulatory lg3 20:44 Acuity: [place] 3 lg3 Triage Assessment: 20:46 General: Appears in no apparent distress. comfortable, Behavior is calm, cooperative. lg3 Pain: Complains of pain in head. EENT: No deficits noted. No signs and/or symptoms were reported regarding the EENT system. Neuro: No deficits noted. Noriega Agitation-Sedation Scale (RASS): 0 - Alert and Calm Level of Consciousness is awake, alert, obeys commands, Oriented to person, place, time, situation, Reports dizziness, headache. Cardiovascular: No deficits noted. Denies chest pain, shortness of breath, Capillary refill < 3 seconds Clubbing of nail beds is absent JVD is absent Patient's skin is warm and dry. Respiratory: No deficits noted. Airway is patent Respiratory effort is even, unlabored, Respiratory pattern is regular, symmetrical, Breath sounds are clear bilaterally. GI: No deficits noted. Abdomen is round non-distended, obese, Bowel sounds present X 4 quads. Abd is soft and non tender X 4 quads. Reports nausea. : No signs and/or symptoms were reported regarding the genitourinary system. Derm: No deficits noted. No signs and/or symptoms reported regarding the dermatologic system. Skin is intact, is healthy with good turgor, Skin is dry, Skin is normal, Skin temperature is warm. Musculoskeletal: No deficits noted. No signs and/or symptoms reported regarding the musculoskeletal system. Circulation, motion, and sensation intact. Range of motion: intact in all extremities. 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 - Infectious Disease History:: Denies. - Social history:: Smoking status: Patient denies any tobacco usage or history of. Patient uses alcohol, occasionally. Patient/guardian denies using street drugs. Screenin:48 [facility] ED Fall Risk Assessment (Adult) History of falling in the last 3 months, lg3 including since admission No falls in past 3 months (0 pts) Confusion or Disorientation No (0 pts) Intoxicated or Sedated No (0 pts) Impaired Gait No (0 pts) Mobility Assist Device Used No (0 pt) Altered Elimination No (0 pt) Score/Fall Risk Level 0 - 2 = Low Risk Oriented to surroundings, Maintained a safe environment, Educated pt \T\ family on fall prevention, incl call for assistance when getting out of bed, Assessed \T\ reinforced patient's understanding of fall precautions. Abuse screen: Denies threats or abuse. Denies injuries from another. Nutritional screening: No deficits noted. Tuberculosis screening: No symptoms or risk factors identified. Assessment: 20:48 General: see triage assessment. GI: No deficits noted. Abdomen is round non-distended, lg3 obese, Bowel sounds present X 4 quads. Abd is soft and non tender X 4 quads. Reports nausea. 22:03 Reassessment: Patient appears in no apparent distress at this time. No changes from lg3 previously documented assessment. Patient and/or family updated on plan of care and expected duration. Pain level reassessed. Patient is alert, oriented x 3, equal unlabored respirations, skin warm/dry/pink. 23:31 Reassessment: Patient appears in no apparent distress at this time. Patient and/or lg3 family updated on plan of care and expected duration. Pain level reassessed. Patient is alert, oriented x 3, equal unlabored respirations, skin warm/dry/pink. Patient states feeling better. Patient states symptoms have improved. 06/21 00:50 Reassessment: Patient appears in no apparent distress at this time. Patient and/or lg3 family updated on plan of care and expected duration. Pain level reassessed. Patient is alert, oriented x 3, equal unlabored respirations, skin warm/dry/pink. Patient states feeling better. Patient states symptoms have improved. Vital Signs: 06/20 20:44 BP 123 / 88; Pulse 92; Resp 16 S; Temp 98.9(O); Pulse Ox 100% on R/A; Weight 90.72 kg lg3 (R); Height 5 ft. 1 in. (R); Pain 5/10; 22:03 BP 112 / 86 Supine; Pulse 111; Pulse Ox 100% on R/A; lg3 22:03 BP 114 / 81 Sitting; Pulse 101; Pulse Ox 99% on R/A; lg3 22:03 BP 112 / 86 Standing; Pulse 104; Pulse Ox 100% on R/A; lg3 23:31 BP 110 / 75; Pulse 86; Resp 16 S; Pulse Ox 99% on R/A; lg3 06/21 00:50 BP 114 / 77; Pulse 89; Resp 17 S; Pulse Ox 100% on R/A; lg3 06/20 20:44 Body Mass Index 37.79 (90.72 kg, 154.94 cm) lg3 06/20 20:44 Pain Scale: Adult lg3 ED Course: 06/20 20:14 Patient arrived in ED. [id number] 20:19 Abel Stahl PA is PHCP. cp 20:19 Abel Dalal MD is Attending Physician. cp 20:46 Triage completed. lg3 20:46 Arm band placed on right wrist. lg3 20:48 Patient has correct armband on for positive identification. Placed in gown. Bed in low lg3 position. Call light in reach. Side rails up X 1. Client placed on continuous cardiac and pulse oximetry monitoring. NIBP monitoring applied. youth nutritional monitor on. Door closed. Noise minimized. Warm blanket given. Pillow given. Family accompanied patient. 20:52 Alfie Lucio MD is Attending Physician. cp 21:13 Inserted saline lock: 22 gauge in right antecubital area, using aseptic technique. mm11 Blood collected. Flushed with 10 mL NS. 21:14 Ptt, Activated Sent. mm11 21:14 PT-INR Sent. mm11 21:14 CBC with Diff Sent. mm11 21:14 CMP Sent. mm11 21:14 Lipase Sent. mm11 21:19 CT Head Brain wo Cont In Process Unspecified. EDMS 21:44 Theresa Riley, RN is Primary Nurse. lg3 22:02 UA W/ Microscopic Sent. mm11 06/21 00:50 No provider procedures requiring assistance completed. IV discontinued, intact, lg3 bleeding controlled, No redness/swelling at site. Pressure dressing applied. Administered Medications: 06/20 22:02 Drug: NS 0.9% IV 1000 ml IV at 1 bolus Per protocol; to be given as a bolus over 60 lg3 minutes Route: IV; Rate: 1 bolus; Site: right antecubital; 23:32 Follow up: Response: No adverse reaction; IV Status: Completed infusion; IV Intake: lg3 1000ml 22:02 Drug: metoCLOPramide IVP 10 mg IVP once; over 1 to 2 minutes Route: IVP; Site: right lg3 antecubital; 23:32 Follow up: Response: No adverse reaction lg3 22:02 Drug: diphenhydrAMINE IVP 25 mg IVP once Route: IVP; Site: right antecubital; lg3 23:32 Follow up: Response: No adverse reaction lg3 Medication: 06/21 00:51 VIS not applicable for this client. lg3 Intake: 06/20 23:32 IV: 1000ml; Total: 1000ml. lg3 Outcome: 06/21 00:01 Discharge ordered by . cp 00:50 Discharged to home ambulatory, with significant other, lg3 00:50 Condition: stable 00:50 Discharge instructions given to patient, Instructed on discharge instructions, follow up and referral plans. medication usage, Demonstrated understanding of instructions, follow-up care, medications, Prescriptions given X 3, 00:51 Patient left the ED. lg3 Signatures: Dispatcher [employer] EDMS Abel Stahl PA PA cp Able, Lacie, RN RN lg3 Naomy Charltno [id number] marco torres mm11
[2024-06-21 03:46] VITALS: TEMP 98.9
[2024-06-21 03:49] VITALS: BP 114/77; O2SAT 100
== END 2024-06-21 00:51 | disposition home or self-care (01) ==
LOC: ER 20:10
DX: R51.9 Headache, unspecified (principal); R11.0 Nausea; R42 Dizziness and giddiness
CPT/HCPCS: 96361; 85025; 81001; 36415; 81025; 85610; 85730; 83690; 80053; 70450; 96375; 96374; 99285; J2765; J1200; J7030